=== PATIENT | male | born 1990 | race African-American/Black ===

== ENCOUNTER 2017-12-07 11:48 | Emergency (ER) | payer MEDICARE, SELFPAY ==
[2017-12-07 11:49] VITALS: BP 139/79; PULSE 55; RESP 16; TEMP 37.1; O2SAT 99; BMI 28.1
--- NOTE | 2017-12-07 12:25 | VDLE_ITS ---
Reason For Study: LEG PAIN Procedure LEFT Exam performed portable in ED. GSV is normal. A preliminary report was called and/or faxed CFV is compressible, spontaneous, phasic, to Dr. Howard. competent, and demonstrates normal augmentation. FV is compressible, spontaneous, phasic, competent and demonstrates normal augmentation. POP V is compressible, spontaneous, phasic, competent and demonstrates normal augmentation. T/P Trunk is compressible. PTV is compressible. LT PerV is compressible. Interpretation Summary Deep veins of the left lower extremity are patent and compressible segmentally. There is no evidence of left lower extremity deep vein thrombosis. Valvular competence appears intact within the proximal deep venous system on the left . The left greater saphenous vein appears patent and compressible segmentally. Ordering Physician: Oma Howard Referring Physician: Niko Buckner Performed By: Moon Madrigal RVT
--- NOTE | 2017-12-07 12:25 | RAD_ITS ---
STUDY: X-RAY - LEFT KNEE REASON FOR EXAM: Male, 27 years old. Left knee pain. History of torn cartilage TECHNIQUE: 4 view(s) of the knee. COMPARISON: None. FINDINGS: Normal visualized distal femur. Normal visualized proximal tibia and fibula. Normal proximal tibiofibular articulation. Normal medial femorotibial compartment. Normal lateral femorotibial compartment. Normal patellofemoral articulation. The soft tissue structures are unremarkable. RAD/Knee 4 or More Views IMPRESSION: Normal x-ray examination of the knee. Electronically Signed: Rickey Stevenson MD at 13:14 EST Tel [phone], Service support ,
--- NOTE | 2017-12-07 12:29 | ED.DCSUM_ITS ---
- ER Visit Summary Date of Service: 12/07/17 Chief Complaint: Left knee pain History of Present Illness: The patient is a 27 M presenting with left knee pain for months, worsening ?2 days. Patient states he has a history of torn cartilage in his left knee. He has seen Dr. Gonzalez in the past. He states he has been in physical therapy in the past which has not helped. He has taken Tylenol, ibuprofen at home. He states he has not seen Dr. Gonzalez in over a year. He denies any new injury. Denies fever chills or other complaints. Physical Examination: Vitals are stable. Patient is afebrile. Alert no acute distress. HEENT exam is unremarkable. Lungs are clear and equal bilaterally. Heart is regular rate and rhythm. Extremities left knee: mild posterior tenderness. Active full range of motion. No swelling or effusion. No warmth or erythema. Normal distal pulse. Skin is warm and dry. No focal neurologic deficit. Remainder of exam is unremarkable. Emergency Department Course and Treatment: Ultrasound of the left lower extremity shows no evidence of DVT. Left knee x-ray shows no acute process. He was given Toradol IM. Advised to ice and elevate. Advised to follow-up with Dr. Gonzalez as needed. Advised return ED if worsening complaints. Disposition: Discharge home Impression: Chronic left knee pain This note was generated with [employer] dictation software. It may contain incorrect words, spelling, and punctuation that were not noted in review of the chart prior to signing ED Disposition - Plan for ED Patient: Chief Complaint: Lower Extremity Injury Referrals: Niko Buckner MD [Primary Care Provider] -
--- NOTE | 2017-12-07 13:32 | ED.DEP ---
ED Disposition - Plan for ED Patient: Chief Complaint: Lower Extremity Injury Instructions: ED Sprain Knee Referrals: Niko Buckner MD [Primary Care Provider] - Renny Gonzalez DO [STAFF PHYSICIAN] -
[2017-12-07] MEDS: Ketorolac 60 MG/2 ML Vial IM (13:41)
[2017-12-07 13:42] VITALS: BP 142/100; PULSE 48; RESP 16; O2SAT 100
== END 2017-12-07 14:08 | disposition home or self-care (01) ==
PROVIDERS: Emergency Provider Emergency Medicine; Family Provider Family Medicine; PCP Family Medicine
DX: M25.562 Pain in left knee (principal); G89.29 Other chronic pain; F90.9 Attention-deficit hyperactivity disorder, unspecified type; Z72.0 Tobacco use
CPT/HCPCS: 73564; 93971; 96372; 99282

== ENCOUNTER 2018-01-12 21:18 | Emergency (ER) | payer MEDICARE, SELFPAY ==
[2018-01-12 21:18] VITALS: BP 160/80; PULSE 73; RESP 16; TEMP 36.8; O2SAT 98; BMI 25.0
--- NOTE | 2018-01-12 21:33 | ED.VISSUMM ---
- ER Visit Summary Date of Service: 01/12/18 Chief Complaint: Knee pain History of Present Illness: The patient is a 27 M who states that he was walking down the street. He states all of a sudden his left knee gave out. He reports that his left knee was stuck in a bent position. He states he did nothing other than wait for it to loosen up and he was able to straighten it out. He has a history of knee issues and is currently in physical therapy. He has seen Dr. Gonzalez from orthopedics. He is unsure of his next appointment. Physical Examination: Afebrile vital signs are stable Gen: Well-nourished well-developed Head: Normocephalic atraumatic Eyes: Perrl EOMI ENT: TMs clear no rhinorrhea moist mucous membranes Neck: Supple no lymphadenopathy no JVD nontender CVS: Regular rate rhythm no murmurs normal S1-S2 Respiratory: No distress clear to auscultation bilaterally chest nontender Abdomen: Soft nontender nondistended normal bowel sounds no masses Back: Nontender Extremity: She reports diffuse tenderness to palpation along the patella. However he is able to palpate it without the same pain as when I palpated. He is able to have full range of motion flexion extending without difficulty. Ligaments are stable. Skin: Normal color no rash Neuro: alert orientated ?3 CN II-XII intact Psych: Normal affect normal mood Test Results: Not indicated Emergency Department Course and Treatment: Patient will be discharged home. We will Colton wrap the knee. He is to follow-up as scheduled. Impression:. Left knee pain This note was generated with [employer] dictation software. It may contain incorrect words, spelling, and punctuation that were not noted in review of the chart prior to signing ED Disposition - Plan for ED Patient: Disposition: Home or Assisted Living Chief Complaint: Lower Extremity Injury Instructions: ED Knee Pain UKO, ED Dislocation Patella Referrals: Renny Gonzalez DO [STAFF PHYSICIAN] - Keep Destiny appointment
[2018-01-12] MEDS: Ibuprofen 400 MG Tablet 800 MG PO (21:45)
== END 2018-01-12 21:47 | disposition home or self-care (01) ==
LOC: ED 21:41
PROVIDERS: Emergency Provider Emergency Medicine; Family Provider Family Medicine; PCP Family Medicine
DX: M25.562 Pain in left knee (principal); F98.8 Other specified behavioral and emotional disorders with onset usually occurring in childhood and adolescence
CPT/HCPCS: 99283

== ENCOUNTER 2018-01-26 09:07 | Emergency (ER) | payer MEDICARE, SELFPAY ==
[2018-01-26 09:08] VITALS: BP 153/94; PULSE 66; RESP 16; TEMP 36.2; O2SAT 98; BMI 25.0
--- NOTE | 2018-01-26 09:18 | ED.VISSUMM ---
- ER Visit Summary Date of Service: 01/26/18 Chief Complaint: Severe sore throat History of Present Illness: The patient is a 27 M who presents with sore throat, nasal congestion, nonproductive cough. He states swallowing liquids or solids causes increased pain. He reports difficulty swallowing pills. He also complains of fatigue. He denies any ocular, auditory or visual symptoms. He denies any neck pain or stiffness. His cough is nonproductive. He is a smoker of 2 packs per day. He denies any GI symptoms. He denies rash. He denies contact with anyone that has been ill recently. Physical Examination: Vital signs are remarkable for blood pressure 153/94. Vital signs otherwise unremarkable. HEENT exam is remarkable for boggy nasal mucosa with drainage. TMs are normal. Posterior pharynx with mild erythema. Uvula is midline with no exudate noted. Trachea is midline with no stridor. There is no cervical lymphadenopathy. Insert cardiac pulmonary exam Test Results: Since patient Centor score is 0 no testing is indicated or required Emergency Department Course and Treatment: Patient was told he has a viral upper respiratory infection. He was told he may take either use Chloraseptic [place] or Cepastat lozenges for his throat discomfort. He was informed that he may be ill for another 7-10 days. Treatment Plan: Symptomatic arop-jsq-pywmscs treatment and patient's been informed that smoking is not good for him. Disposition: Discharged to home Impression: Acute viral upper respiratory infection This note was generated with [employer] dictation software. It may contain incorrect words, spelling, and punctuation that were not noted in review of the chart prior to signing ED Disposition - Plan for ED Patient: Disposition: Home or Assisted Living Chief Complaint: Sore Throat Instructions: ED URI Viral Referrals: Niko Buckner MD [Primary Care Provider] - 10-14 Days if not better
--- NOTE | 2018-01-26 09:23 | ED.DCSUM_ITS ---
- ER Visit Summary Date of Service: 01/26/18 Chief Complaint: Severe sore throat History of Present Illness: The patient is a 27 M who presents with sore throat , nasal congestion, nonproductive cough. He states swallowing liquids or solids causes increased pain. He reports difficulty swallowing pills. He also complains of fatigue. He denies any ocular, auditory or visual symptoms. He denies any neck pain or stiffness. His cough is nonproductive. He is a smoker of 2 packs per day. He denies any GI symptoms. He denies rash. He denies contact with anyone that has been ill recently. Physical Examination: Vital signs are remarkable for blood pressure 153/94. Vital signs otherwise unremarkable. HEENT exam is remarkable for boggy nasal mucosa with drainage. TMs are normal. Posterior pharynx with mild erythema. Uvula is midline with no exudate noted. Trachea is midline with no stridor. There is no cervical lymphadenopathy. Insert cardiac pulmonary exam Test Results: Since patient Centor score is 0 no testing is indicated or required Emergency Department Course and Treatment: Patient was told he has a viral upper respiratory infection. He was told he may take either use Chloraseptic [place] or Cepastat lozenges for his throat discomfort. He was informed that he may be ill for another 7-10 days. Treatment Plan: Symptomatic ecak-kwq-irlzqkb treatment and patient's been informed that smoking is not good for him. Disposition: Discharged to home Impression: Acute viral upper respiratory infection This note was generated with [employer] dictation software. It may contain incorrect words, spelling, and punctuation that were not noted in review of the chart prior to signing ED Disposition - Plan for ED Patient: Disposition: Home or Assisted Living Chief Complaint: Sore Throat Instructions: ED URI Viral Referrals: Niko Buckner MD [Primary Care Provider] - 10-14 Days if not better
== END 2018-01-26 09:30 | disposition home or self-care (01) ==
PROVIDERS: Emergency Provider Emergency Medicine; Family Provider Family Medicine; PCP Family Medicine
DX: J06.9 Acute upper respiratory infection, unspecified (principal)
CPT/HCPCS: 99282

== ENCOUNTER 2018-03-22 19:37 | Emergency (ER) | payer MEDICARE, SELFPAY ==
--- NOTE | 2018-03-22 18:55 | RAD_ITS ---
STUDY: X-RAY - LEFT KNEE REASON FOR EXAM: Male, 28 years old. Pain TECHNIQUE: 4 view(s) of the knee. COMPARISON: None. FINDINGS: Normal visualized distal femur. Normal visualized proximal tibia and fibula. Normal proximal tibiofibular articulation. Normal medial femorotibial compartment. Normal lateral femorotibial compartment. Normal patellofemoral articulation. The soft tissue structures are unremarkable. RAD/Knee 4 or More Views IMPRESSION: Normal x-ray examination of the knee. Electronically Signed: Niko Grady MD at 16:07 EDT , Service support ,
--- NOTE | 2018-03-22 19:37 | DT_ITS ---
This patient was seen during an EMR downtime March 22, 2018 - March 29, 2018. This patient may have a combination of paper and electronic documentation or all paper documentation. All documentation is viewable within the e-chart portion of [facility] for each patient visit.
== END 2018-03-22 22:00 | disposition home or self-care (01) ==
LOC: ED 03-24 15:11
PROVIDERS: Emergency Provider Emergency Medicine; Family Provider Family Medicine; PCP Family Medicine
DX: M25.562 Pain in left knee (principal); G89.29 Other chronic pain; F17.210 Nicotine dependence, cigarettes, uncomplicated
CPT/HCPCS: 73564; 99284

== ENCOUNTER 2018-05-05 09:36 | Emergency (ER) | payer MEDICARE, SELFPAY ==
[2018-05-05 09:37] VITALS: BP 131/77; PULSE 102; RESP 15; TEMP 35.7; O2SAT 98; BMI 25.5
--- NOTE | 2018-05-05 10:02 | ED.VISSUMM ---
- ER Visit Summary Date of Service: 05/05/18 Chief Complaint: Sore throat History of Present Illness: The patient is a 28 M who states that he woke up on Thursday (2 days ago) with a sore throat. He notes chills and generalized body aches. He states that he is hard for him to swallow. He states that he is on Medrol for knee pain is currently taking anti-inflammatory he does not know the name of. Physical Examination: Afebrile vital signs are stable noted heart rate 102 in triage he is 91 on my examination Gen: Well-nourished well-developed Head: Normocephalic atraumatic Eyes: Perrl EOMI ENT: TMs clear no rhinorrhea moist mucous membranes there is bilateral tonsillar exudate and swelling. Neck: Supple patient has anterior posterior lymphadenopathy no JVD nontender CVS: Regular rate rhythm no murmurs normal S1-S2 Respiratory: No distress clear to auscultation bilaterally chest nontender Abdomen: Soft nontender nondistended normal bowel sounds no masses Back: Nontender Extremity: Nontender no edema Skin: Normal color no rash Neuro: alert orientated ?3 CN II-XII intact normal strength sensation reflexes gait cerebellar Psych: Normal affect normal mood Test Results: Rapid strep/culture was obtained. Rapid was negative. WBC is 17.2 with monocytes of 7.9. Monospot negative. Emergency Department Course and Treatment: Elevated white count is most likely due to the steroid and the infection. I believe this is most likely bacterial and will place him on Augmentin. Will await culture. He could also still be mono given that the test was obtained within the first 3 days of the illness. Patient will return if worsening or concerns or follow-up with his doctor. Impression: 1. Pharyngitis This note was generated with [employer] dictation software. It may contain incorrect words, spelling, and punctuation that were not noted in review of the chart prior to signing ED Disposition - Plan for ED Patient: Disposition: Home or Assisted Living Chief Complaint: Sore Throat Instructions: ED Strep Pharyngitis Poss Prescriptions: Oxycodone [Oxyir] 5 mg PO Q6H PRN PRN 3 Days #10 tab PRN Reason: Pain Amox/Clavulanate Tablet [Augmentin Tablet] 875 mg PO Q12H #20 tab Referrals: Niko Buckner MD [Primary Care Provider] - 3-5 Days if not improving
[2018-05-05 11:23] LABS: Absolute Lymphocyte Count 2.27 X10^3/ul (0.83-4.51); Absolute Neutrophil Count 13.5 X10^3/uL (2.0-7.7); Basophil# 0.03 X10^3/uL; Basophil% 0.2 % (0-1); Eosinophil# 0.04 X10^3/uL; Eosinophils% 0.2 % (0-5); Hematocrit 39.5 % (40-54); Hemoglobin 13.9 g/dl (13.0-16.5); Lymphocyte # 2.27 X10^3/ul (4.0); Lymphocyte % 13.2 % (19-41); Mean Corp Hgb Conc 35.2 g/gl (32-36); Mean Corpuscular Volume 88.2 fL (80-94); Mean Platelet Vol. 10.4 fl (6.2-12.0); Monocyte# 1.37 X10^3/uL; Monocyte% 7.9 % (0-10); Neutrophil # 13.48 X10^3/uL (2.7-7.7); Neutrophil % 78.2 % (47-70); Platelet Count 192 K/mm3 (150-450); RBC Distribution Width CV 12.3 % (11.6-14.6); RBC Distribution Width SD 38.9 fl (35.1-43.9); Red Blood Count 4.48 M/mm3 (4.6-6.2); White Blood Count 17.2 K/mm3 (4.4-11.0)
[2018-05-05 11:31] LABS: POSITIVE COUNT NO; POSITIVE DIFFERENTIAL NO; POSITIVE MORPHOLOGY NO
[2018-05-05 11:48] LABS: Internal QC Validated? YES +Cl - CLEAR BKGD; Monotest Negative (Negative)
[2018-05-05] MEDS: oxyCODONE 5 MG Tablet PO (12:16)
== END 2018-05-05 12:25 | disposition home or self-care (01) ==
PROVIDERS: Emergency Provider Emergency Medicine; Family Provider Family Medicine; PCP Family Medicine
DX: J02.9 Acute pharyngitis, unspecified (principal); Z72.0 Tobacco use
CPT/HCPCS: 36415; 85025; 86308; 87880; 99282

== ENCOUNTER 2018-05-25 13:13 | Emergency (ER) | payer MEDICARE, SELFPAY ==
[2018-05-25 13:37] VITALS: BP 98/50; PULSE 61; RESP 16; TEMP 36.4; O2SAT 98; BMI 25.2
--- NOTE | 2018-05-25 15:11 | ED.DCSUM_ITS ---
- ER Visit Summary Date of Service: 05/25/18 Chief Complaint: Left knee pain History of Present Illness: The patient is a 28 M with chronic left knee pain. He states it is been locking up on him more than normal. He has seen orthopedics and physical therapy in the past, but states not for quite a while. He denies any new injury. Physical Examination: Vital signs unremarkable. Patient sitting in the rivera chair. He is in no acute distress. Lower external examination is significant for tenderness along the medial joint line of the left knee. There is no effusion. He has full range of motion without difficulty. Ligaments are tight on testing. He has strong distal pulses and normal sensation. Test Results: Left knee x-rays are obtained and unremarkable. Emergency Department Course and Treatment: Patient was given ibuprofen. On repeat evaluation he is sleeping. He easily awakens. Colton wrap will be applied to the knee and he will be referred to orthopedics for follow-up. Treatment Plan: [] Disposition: Discharge Impression: Left knee pain, concern for meniscus injury This note was generated with [employer] dictation software. It may contain incorrect words, spelling, and punctuation that were not noted in review of the chart prior to signing ED Disposition - Plan for ED Patient: Chief Complaint: Lower Extremity Injury Referrals: Niko Buckner MD [Primary Care Provider] -
[2018-05-25] MEDS: Ibuprofen 600 MG Tablet PO (15:37)
--- NOTE | 2018-05-25 15:45 | RAD_ITS ---
STUDY: X-RAY - LEFT KNEE REASON FOR EXAM: Left knee pain and locking. TECHNIQUE: 4 view(s) of the knee. COMPARISON: Radiographs 03/22/2018. FINDINGS: Normal visualized distal femur. Normal visualized proximal tibia and fibula. Normal proximal tibiofibular articulation. Normal medial femorotibial compartment. Normal lateral femorotibial compartment. Normal patellofemoral articulation. The soft tissue structures are unremarkable. RAD/Knee 4 or More Views IMPRESSION: Normal x-ray examination of the left knee. Electronically Signed: Randy Solorio MD at 16:29 EDT Tel , Service support ,
--- NOTE | 2018-05-25 16:52 | ED.DEP ---
ED Disposition - Plan for ED Patient: Disposition: Home or Assisted Living Chief Complaint: Lower Extremity Injury Instructions: ED Meniscal Injury Knee Poss Prescriptions: Ibuprofen 600 mg PO TID PRN PRN #30 tablet PRN Reason: Pain Referrals: Miriam Gama DO [STAFF PHYSICIAN] - Ottoniel Villar MD [STAFF PHYSICIAN] -
== END 2018-05-25 17:01 | disposition home or self-care (01) ==
PROVIDERS: Emergency Provider Emergency Medicine; Family Provider Family Medicine; PCP Family Medicine
DX: M25.562 Pain in left knee (principal); F90.9 Attention-deficit hyperactivity disorder, unspecified type; Z72.0 Tobacco use
CPT/HCPCS: 73564; 99284

== ENCOUNTER 2019-05-03 18:29 | Emergency (ER) | payer MEDICARE, SELFPAY ==
[2019-05-03 18:51] VITALS: BP 122/68; PULSE 65; RESP 14; TEMP 36.6; O2SAT 99; BMI 28.6
[2019-05-03 19:45] VITALS: RESP 14
--- NOTE | 2019-05-03 20:20 | RAD_ITS ---
STUDY: X-RAY - LEFT KNEE REASON FOR EXAM: Male, 29 years old. Left knee pain TECHNIQUE: 4 view(s) of the knee. COMPARISON: None. FINDINGS: Normal visualized distal femur. Normal visualized proximal tibia and fibula. Normal proximal tibiofibular articulation. Normal medial femorotibial compartment. Normal lateral femorotibial compartment. Normal patellofemoral articulation. The soft tissue structures are unremarkable. RAD/Knee 4 or More Views IMPRESSION: Normal x-ray examination of the knee. Electronically Signed: Edvin Byers DO at 21:10 EDT Tel , Service support ,
[2019-05-03] MEDS: Ibuprofen 600 MG Tablet PO (21:11)
[2019-05-03] MEDS: predniSONE 20 MG Tablet 40 MG PO (21:11)
--- NOTE | 2019-05-03 21:20 | ED.VIS.LOWEX ---
History of Present Illness Chief Complaint: Lower Extremity Injury Detail of Chief Complaint: Left knee pain Informant: Patient Occurred: Days, - - 2 days Mechanism/Context: - - No known injury Onset: Yesterday Timing: Continuous Quality of Pain: Aching, Throbbing Current Severity: Mild Maximum Severity: Moderate Associated Symptoms: Negative for: Parasthesia, Weakness Narrative: Patient reports history of chronic left knee pain. Patient had scope performed by Dr. Villar in November where he states a muscle was rubbing across a bone in his knee causing pain. This was fixed and patient had been doing quite well until yesterday. Patient complains of increased pain along the inferior aspect of the kneecap that started yesterday. It is worse with movement. He denies any known injury or change in activity. - Past Medical History (1) ADHD Status: Acute Past Medical History - Allergies and Home Meds Allergies/Adverse Reactions: Allergies naproxen Adverse Reaction (Mild, Verified 05/03/19 18:54) Other atomoxetine HCl [From Strattera] Adverse Reaction (Verified 05/03/19 18:54) Other MIGRIANES Primary Care Physician: Ottoniel Villar MD [STAFF PHYSICIAN] - 1-2 Weeks Prior records reviewed: Yes Past Medical History: - - Reviewed Surgical History: - - Left knee Smoking Status: Current every day smoker Review of Systems General: Denies: Chills, Fever Cardiovascular: Denies: Chest pain Respiratory: Denies: Dyspnea Gastrointestinal: Denies: Abdominal pain Musculoskeletal: Reports: Arthralgias Neurological: Denies: Weakness, Parasthesia, Numbness Physical Exam Vital Signs/Narrative: Vital Signs Temp Pulse Resp BP Pulse Ox 05/03/19 19:45 14 05/03/19 18:51 97.9 F 65 14 122/68 H 99 Inital Vital Signs reviewed: Yes - Extremity Exam Left Knee: - - Patient has reproducible focal pain along the infrapatellar tendon. No tenderness noted along the joint lines. He has full range of motion without difficulty. General: Well nourished, Well developed ENT: No Trauma Cardiovascular: Regular rate, Regular rhythm Respiratory: No distress, CTA bilaterally Abdomen: Soft, Nontender Neurological: Alert, Oriented x3, Normal Strength, Normal Sensation, - - Strong distal pulses Psychological: Normal affect Diagnostic/Tx/Re-eval Impressions Knee X-Ray 05/03/19 20:20 IMPRESSION: Normal x-ray examination of the knee. Electronically Signed: Edvin Byers DO at 21:10 EDT Tel , Service support , 05/03/19 20:20 Knee 4 or More Views [RAD] Stat - Medical Decision Making Patient has focal tenderness along the infrapatellar tendon. I believe he likely has tendinitis. He is treated with ibuprofen and prednisone. Colton wrap is applied to the knee. He will follow-up with Dr. Villar. ED Disposition - Plan for ED Patient: Disposition: Home or Assisted Living Diagnosis: Left knee sprain Instructions: Knee Sprain Prescriptions: Prednisone [Deltasone] 40 mg PO DAILY #10 tab Prescription Printed Ibuprofen 600 mg PO TID PRN PRN #14 tab PRN Reason: Pain Prescription Printed Referrals: Ottoniel Villar MD [STAFF PHYSICIAN] - 1-2 Weeks
== END 2019-05-03 21:33 | disposition home or self-care (01) ==
PROVIDERS: Emergency Provider Emergency Medicine; Family Provider Family Medicine; PCP Family Medicine
DX: S83.92XA Sprain of unspecified site of left knee, initial encounter (principal); X58.XXXA Exposure to other specified factors, initial encounter; Y93.9 Activity, unspecified; Y92.9 Unspecified place or not applicable; F90.9 Attention-deficit hyperactivity disorder, unspecified type; M25.562 Pain in left knee; G89.29 Other chronic pain; Z79.899 Other long term (current) drug therapy; F17.200 Nicotine dependence, unspecified, uncomplicated
CPT/HCPCS: 73564; 99285

== ENCOUNTER 2019-06-29 21:38 | Emergency (ER) | payer MEDICARE, SELFPAY ==
[2019-06-29 21:39] VITALS: BP 107/54; PULSE 63; RESP 18; TEMP 36.8; O2SAT 100; BMI 28.1
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
[2019-06-30 00:31] LABS: Bacteria 0 SEEN /hpf (None Seen)
[2019-06-30 00:32] LABS: Color, Urine Yellow (Yellow); Glucose, Dipstick Normal (Normal); Ketone-Dipstick 5 mg/dl (Negative); Leukocyte Esterase-Dipstick 500 /ul (Negative); Nitrite-Dipstick Negative (Negative); Occult Blood-Urine 10 /ul (Negative); Protein-Dipstick 30 mg/dl (Negative); Specific Gravity, Urine 1.025 (1.002-1.030); Urine Bilirubin Dipstick Negative (Negative); Urine Clarity Cloudy (Clear); Urine Urobilinogen 1 mg/dl (Normal)
[2019-06-30 00:41] LABS: Hyaline Cast 0-5 SEEN /lpf (0-5); Mucous, Urine 1+ /hpf (<or=2+); Red Blood Cells-Urine 0-5 SEEN /hpf (0-5); Squamous Epithelial Cells - UA 0-5 SEEN /hpf (0-5); White Blood Cells 50-100 SEEN /hpf (0-5)
[2019-06-30] MEDS: Ciprofloxacin 500 MG Tablet PO (00:58)
[2019-06-30 01:00] VITALS: RESP 16
[2019-06-30 03:19] LABS: Chlamydia Trachomatis by PCR Negative (Negative); Probe Check PASS
[2019-06-30 03:20] LABS: Neisserai gonorrhoeae by PCR Positive (Negative); Sample Adequacy Control PASS; Specimen Processing Control PASS
--- NOTE | 2019-06-30 11:01 | ED.RN ---
PT CALLED ABOUT TEST RESULTS. PT WANTED RX [facility]. SUPRAX 400MG PO X 1 AND AZITHROMYCIN 1000MG X [address] LITTLE
== END 2019-06-30 01:01 | disposition home or self-care (01) ==
PROVIDERS: Emergency Provider Emergency Medicine; Family Provider Family Medicine; PCP Family Medicine
DX: N30.90 Cystitis, unspecified without hematuria (principal); A54.9 Gonococcal infection, unspecified; F17.200 Nicotine dependence, unspecified, uncomplicated
CPT/HCPCS: 81001; 87086; 87491; 87591; 99284

== ENCOUNTER 2019-07-14 14:50 | Emergency (ER) | payer MEDICARE, SELFPAY ==
[2019-07-14 14:50] VITALS: BP 140/75; PULSE 63; RESP 16; TEMP 36.5; O2SAT 99
[2019-07-14 14:51] VITALS: BP 140/75; PULSE 63; RESP 16; TEMP 36.5; O2SAT 99; BMI 32.5
--- NOTE | 2019-07-14 15:14 | RAD_ITS ---
STUDY: X-RAY - LEFT KNEE REASON FOR EXAM: Male, 29 years old. Lateral knee pain following a fall TECHNIQUE: 4 view(s) of the knee. COMPARISON: None. FINDINGS: Normal visualized distal femur. Normal visualized proximal tibia and fibula. Normal proximal tibiofibular articulation. Normal medial femorotibial compartment. Normal lateral femorotibial compartment. Normal patellofemoral articulation. The soft tissue structures are unremarkable. RAD/Knee 4 or More Views IMPRESSION: Normal x-ray examination of the knee. Electronically Signed: Rickey Stevenson, at 15:40 EDT , Service support ,
--- NOTE | 2019-07-14 15:17 | ED.DCSUM_ITS ---
- ER Visit Summary Date of Service: 07/14/19 Chief Complaint: [Fall with injury to back and left knee] History of Present Illness: The patient is a 29 M [resents to the emergency department after sustaining fall while at the [employer]. 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 Patient was doing some dishes and cleaned a large pot that he went to set on the counter and slipped on the wet floor which caused him to fall and dropped the large pot onto his left knee. Patient has history of some chronic back pain issues. He denies any pain rating down his legs. He denies any weakness in extremities. Patient's main concern is his left knee. Patient states that he has had a left knee operated on in the past and had a arthroscopy of it. She otherwise has no medical history.] Physical Examination: HEENT-PERRLA, EOMI. Cranial nerves II through XII grossly intact. TMs clear. Mucous membranes moist. No adenopathy. Cardiovascular-regular rate and rhythm without murmur or ectopy Lungs-clear to auscultation, chest wall stable without crepitus or subcu emphysema Abdomen-normoactive bowel sounds, soft, nontender, no rebound or rigidity, no peritoneal signs. Back exam-patient has some mild to minimal discomfort over the lumbar spine and lumbar paraspinal musculature bilaterally. There is no ecchymosis or bruising. No bony step-offs noted. Patient has negative straight leg raises. Deep tendon reflexes are plus 2 out of 4 bilaterally at the patella and Achilles. Patient has normal 5 extension bilaterally. Extremities-intact ?4, normal range of motion, normal pulses. Left knee-patient has diffuse tenderness over the patella. There is no ecchymosis or bruising noted. There is no deformity. Patient has pain with flexion extension of the knee. He is neurovascular intact distally.] Test Results: [X-rays of the left knee obtained which were normal.] Emergency Department Course and Treatment: [Patient was given an Colton wrap. Patient was given a dose of ibuprofen.] Treatment Plan: [To follow-up with his primary care physician within next 5 to 7 days. Refused crutches.] Disposition: [Discharged home in stable condition] Impression: [Mechanical fall Back strain Contusion left knee] This note was generated with [employer] software. It may contain incorrect words, spelling, and punctuation that were not noted in review of the chart prior to signing ED Disposition - Plan for ED Patient: Referrals: Niko Buckner MD [Primary Care Provider] -
--- NOTE | 2019-07-14 15:52 | ED.DEP ---
ED Disposition - Plan for ED Patient: Instructions: Back Sprain/Strain, CONTUSION, Lower Extremity, FALL, Mechanical Prescriptions: Ibuprofen [Motrin] 600 mg PO Q6H PRN PRN #30 tab PRN Reason: Pain Score 4-10/10 Prescription Printed Referrals: Niko Buckner MD [Primary Care Provider] - 5-7 Days
[2019-07-14 16:01] VITALS: BP 131/52; PULSE 70; RESP 16; O2SAT 98
--- NOTE | 2019-07-14 16:04 | ED.RN ---
PT WAS GIVEN MOTRIN PRIOR TO COMING TO ER SO REFUSED
== END 2019-07-14 16:05 | disposition home or self-care (01) ==
LOC: ED 15:22
PROVIDERS: Emergency Provider Emergency Medicine; Family Provider Family Medicine; PCP Family Medicine
DX: S80.02XA Contusion of left knee, initial encounter (principal); S39.012A Strain of muscle, fascia and tendon of lower back, initial encounter; W01.0XXA Fall on same level from slipping, tripping and stumbling without subsequent striking against object, initial encounter; Y93.G1 Activity, food preparation and clean up; Y92.89 Other specified places as the place of occurrence of the external cause; Y99.2 Volunteer activity; F12.90 Cannabis use, unspecified, uncomplicated; Z72.0 Tobacco use
CPT/HCPCS: 73564; 99285

== ENCOUNTER 2019-08-22 14:42 | Emergency (ER) | payer MEDICARE, SELFPAY ==
[2019-08-22 14:43] VITALS: BP 134/69; PULSE 86; RESP 21; TEMP 37.1; O2SAT 98; BMI 30.2
--- NOTE | 2019-08-22 15:14 | ED.DCSUM_ITS ---
History of Present Illness Chief Complaint: Back Informant: Patient Onset: Today Current Severity: Moderate Maximum Severity: Moderate Narrative: Patient presents with right lower back pain. He states he woke with pain this morning. He denies any known injury or change in activity. He does have a problem with his back in the past but is never had surgery or injections. Pain does not radiate to his legs. He denies dysuria or hematuria. Patient points to the right mid lumbar paraspinals and describing his area of pain. He denies fever or chills. Has not otherwise been sick. He states he took 600 mill grams of ibuprofen approximately 3 hours ago. Past Medical History - Allergies and Home Meds Allergies/Adverse Reactions: Allergies latex Allergy (Verified 08/22/19 14:44) Hives naproxen Adverse Reaction (Mild, Verified 08/22/19 14:44) Other atomoxetine HCl [From Strattera] Adverse Reaction (Verified 08/22/19 14:44) Other MIGRIANES Primary Care Physician: Niko Buckner MD [Primary Care Provider] - Prior records reviewed: Yes Past Medical History: - - Reviewed Surgical History: - - Left knee Smoking Status: Current every day smoker Review of Systems General: Denies: Chills, Fever Eyes: Denies: Visual changes - bilaterally ENT: Denies: Bilateral ear pain Cardiovascular: Denies: Chest pain, Palpitations Respiratory: Denies: Dyspnea, Cough Gastrointestinal: Denies: Abdominal pain, Nausea, Vomiting, Diarrhea Genitourinary: Denies: Dysuria, Hematuria Musculoskeletal: Reports: Back pain. Denies: Extremity Pain Skin: Denies: Rash Neurological: Denies: Headache, Parasthesia, Numbness Hematologic: Denies: Easy bruising Allergy: Denies: Uticaria Physical Exam Vital Signs/Narrative: Vital Signs Temp Pulse Resp BP Pulse Ox 08/22/19 14:43 98.8 F 86 21 H 134/69 H 98 Inital Vital Signs reviewed: Yes General: Well nourished, Well developed Head: Normocephalic ENT: Moist mucous membranes Neck: Supple Cardiovascular: Regular rate, Regular rhythm Respiratory: No distress, CTA bilaterally Abdomen: Soft, Nontender, Normal bowel sounds, No masses Back: - - Reproducible tenderness in the right mid lumbar paraspinal muscles. No erythema or rash. Mild midline tenderness. No tenderness in the left paraspinals. Extremities: Nontender, No edema Skin: Normal color, No rash Neurological: Alert, Oriented x3, - - No neuro deficits noted. Strong distal pulses. Psychological: Normal affect Diagnostic/Tx/Re-eval Laboratory Results 08/22/19 15:24 Urine Color Yellow Urine Clarity Clear Urine pH 7.0 Ur Specific [place] 1.010 Urine Protein 15 H Urine Glucose (UA) Normal Urine Ketones Negative Urine Occult Blood Negative Urine Nitrite Negative Urine Bilirubin Negative Urine Urobilinogen 1 H Ur Leukocyte Esterase Negative Urine RBC 0 SEEN Urine WBC 0-5 SEEN Ur Squamous Epith Cells 0 SEEN Urine Bacteria 0 SEEN Urine Mucus 0 SEEN - Medical Decision Making Patient had taken ibuprofen prior to arrival. He was given p.o. Valium here for muscle spasm. On repeat evaluation is resting comfortably and reports improvement in his pain. He will be discharged with Valium for muscle spasm. He will continue ibuprofen at home. ED Disposition - Plan for ED Patient: Disposition: Home or Assisted Living Diagnosis: Lumbar strain Instructions: BACK SPASM, No Trauma, Back Sprain/Strain Prescriptions: Diazepam [Valium] 5 mg PO Q12H PRN PRN #10 tablet PRN Reason: Muscle Spasm Referrals: Niko Buckner MD [Primary Care Provider] - 1 Week if not improving
[2019-08-22 15:30] LABS: Bacteria 0 SEEN /hpf (None Seen); Mucous, Urine 0 SEEN /hpf (<or=2+); Red Blood Cells-Urine 0 SEEN /hpf (0-5); Squamous Epithelial Cells - UA 0 SEEN /hpf (0-5)
[2019-08-22 15:39] LABS: Color, Urine Yellow (Yellow); Glucose, Dipstick Normal (Normal); Ketone-Dipstick Negative (Negative); Leukocyte Esterase-Dipstick Negative /ul (Negative); Nitrite-Dipstick Negative (Negative); Occult Blood-Urine Negative /ul (Negative); Protein-Dipstick 15 mg/dl (Negative); Urine Bilirubin Dipstick Negative (Negative); Urine Clarity Clear (Clear); Urine Urobilinogen 1 mg/dl (Normal)
[2019-08-22] MEDS: diazePAM 5 MG Tablet PO (15:39)
[2019-08-22 16:21] LABS: White Blood Cells 0-5 SEEN /hpf (0-5)
[2019-08-22 16:32] VITALS: PULSE 79; RESP 17; O2SAT 97
== END 2019-08-22 16:37 | disposition home or self-care (01) ==
PROVIDERS: Emergency Provider Emergency Medicine; Family Provider Family Medicine; PCP Family Medicine
DX: S39.012A Strain of muscle, fascia and tendon of lower back, initial encounter (principal); X58.XXXA Exposure to other specified factors, initial encounter; Y93.9 Activity, unspecified; Y92.9 Unspecified place or not applicable
CPT/HCPCS: 81001; 99283

== ENCOUNTER 2019-08-30 18:09 | Emergency (ER) | payer MEDICARE, SELFPAY ==
[2019-08-30 18:10] VITALS: BP 135/85; PULSE 99; RESP 17; TEMP 37.1; O2SAT 99; BMI 34.5
--- NOTE | 2019-08-30 18:17 | ED.VIS.GEN ---
History of Present Illness Chief Complaint: Other, Pain/Inj Informant: Patient Onset: Days Context: Sudden Onset Timing: Continuous Quality: Infection right ring and little finger Location: Infected blister ulnar side distal right ring finger and paronychia ring Current Severity: Mild Maximum Severity: Moderate Worsened by: Pressure Relieved by: Nothing Associated Symptoms: No associated symptoms Narrative: Patient is a 29-year-old [id number] male who is on disability secondary to ADHD and unable to read. He attempted to squeeze fluid out of the blister right ring finger and the paronychia. Paronychia is located in the ring finger. He denies history of diabetes. He denies fever, chills night sweats. He denies paresthesia, anesthesia or motor weakness. Prior similar symptoms: No Recent Illness/Hospitalization: No - Past Medical History (1) Unable to read or write Status: Acute (2) ADHD Status: Acute Past Medical History - Allergies and Home Meds Allergies/Adverse Reactions: Allergies latex Allergy (Verified 08/30/19 18:10) Hives naproxen Adverse Reaction (Mild, Verified 08/30/19 18:10) Other atomoxetine HCl [From Strattera] Adverse Reaction (Verified 08/30/19 18:10) Other MIGRIANES Primary Care Physician: Niko Buckner MD [Primary Care Provider] - Prior records reviewed: No Surgical History: - - Left knee Lives: Alone Smoking Status: Current every day smoker Drugs: None Review of Systems General: Denies: Chills, Fever, Malaise, Subjective, Sweats Skin: Reports: Abrasions, Wounds. Denies: Rash, Abscess Neurological: Denies: Weakness, Parasthesia, Numbness Hematologic: Denies: Easy bruising, Easy bleeding Physical Exam Vital Signs/Narrative: Vital Signs Temp Pulse Resp BP Pulse Ox 08/30/19 18:10 98.7 F 99 17 135/85 H 99 Inital Vital Signs reviewed: Yes General: Well nourished, Well developed, Obese, No Acute Distress Head: Normocephalic, Atraumatic Eyes: Perrl, EOMI. Negative for: Pale conjunctiva, Scleral icterus ENT: Moist mucous membranes, No rhinorrhea, TM's clear Neck: Supple, Nontender, No lymphadenopathy, No JVD Cardiovascular: Regular rate, Regular rhythm, No murmurs, Normal S1, Normal S2 Respiratory: No distress, CTA bilaterally, Chest nontender Extremities: No edema, Tenderness, - - Infected blister distal ulnar side of the right ring finger and a paronychia is radial side ring finger.. Negative for: Nontender Skin: Normal color, No Trauma, Rash. Negative for: Cyanosis, Diaphoresis, Jaundice Neurological: Alert, Oriented x3, Cranial nerves II-XII grossly intact, Normal Strength, Normal Sensation Psychological: Normal affect Diagnostic/Tx/Re-eval - Medical Decision Making Patient has an infected blister right ring finger which will require unroofing. There is no fluctuance with regards to the paronychia. Patient apparently opened the paronychia. Will instruct to soak in warm soapy water. Procedures Procedure(s): Has infected blister radial side right ring finger from the DIP joint to the tip. An 11 blade was used to make a small incision. There was free flow of purulent liquid. There is no evidence of cellulitis. There is no lymphangitis. There is no epitrochlear lymphadenopathy. Therefore will not treat with antibiotics. ED Disposition - Plan for ED Patient: Disposition: Home or Assisted Living Diagnosis: Paronychia of right ring finger, Blister of finger, infected Instructions: Paronychia, Blister Referrals: Niko Buckner MD [Primary Care Provider] - 3-5 Days if not improving Additional Instructions: Soak your are fingers in warm soapy water 6-8 times a day.
== END 2019-08-30 18:33 | disposition home or self-care (01) ==
LOC: ED 18:31
PROVIDERS: Emergency Provider Emergency Medicine; Family Provider Family Medicine; PCP Family Medicine
DX: S60.424A Blister (nonthermal) of right ring finger, initial encounter (principal); X58.XXXA Exposure to other specified factors, initial encounter; L03.011 Cellulitis of right finger; F90.9 Attention-deficit hyperactivity disorder, unspecified type; E66.9 Obesity, unspecified; F17.200 Nicotine dependence, unspecified, uncomplicated; Z68.34 Body mass index [BMI] 34.0-34.9, adult
CPT/HCPCS: 10060; 99282

== ENCOUNTER 2019-09-07 10:16 | Emergency (ER) | payer MEDICARE, SELFPAY ==
[2019-09-07 10:17] VITALS: BP 133/84; PULSE 108; RESP 17; TEMP 36.8; O2SAT 99; BMI 29.3
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
[2019-09-07] MEDS: Acetaminophen 500 MG Tablet 1000 MG PO (10:55)
[2019-09-07 12:16] VITALS: BP 129/99; PULSE 89; RESP 16; O2SAT 97
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
== END 2019-09-07 12:54 | disposition home or self-care (01) ==
PROVIDERS: Emergency Provider Emergency Medicine; Family Provider Family Medicine; PCP Family Medicine
DX: S00.83XA Contusion of other part of head, initial encounter (principal); S00.12XA Contusion of left eyelid and periocular area, initial encounter; S60.511A Abrasion of right hand, initial encounter; Y04.2XXA Assault by strike against or bumped into by another person, initial encounter; Y93.89 Activity, other specified; F90.9 Attention-deficit hyperactivity disorder, unspecified type; F17.200 Nicotine dependence, unspecified, uncomplicated
CPT/HCPCS: 70450; 70486; 99283

== ENCOUNTER 2019-12-13 14:09 | Emergency (ER) | payer MEDICARE, MEDICAID, SELFPAY ==
[2019-12-13 14:11] VITALS: BP 126/68; PULSE 71; RESP 16; TEMP 36.6; O2SAT 100; BMI 29.9
--- NOTE | 2019-12-13 15:08 | RAD_ITS ---
STUDY: X-RAY - RIGHT ANKLE REASON FOR EXAM: Male, 29 years old. right ankle pain TECHNIQUE: 3 view(s) of the ankle. COMPARISON: None. FINDINGS: Normal visualized distal tibia and fibula. Normal medial and lateral malleoli. Normal tibiotalar articulation and ankle mortise. Normal visualized talus and calcaneus. The visualized subtalar, talonavicular, calcaneocuboid and tarsal articulations are normal. The soft tissue structures are unremarkable. RAD/Ankle min 3 Views IMPRESSION: Normal x-ray examination of the ankle. Electronically Signed: Jignesh Jha MD at 15:48 EST Tel , Service support ,
[2019-12-13] MEDS: Ibuprofen 400 MG Tablet 800 MG PO (15:16)
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
== END 2019-12-13 15:43 | disposition home or self-care (01) ==
PROVIDERS: Emergency Provider Emergency Medicine; PCP Family Medicine
DX: M76.61 Achilles tendinitis, right leg (principal); F90.9 Attention-deficit hyperactivity disorder, unspecified type; Z72.0 Tobacco use
CPT/HCPCS: 73610; 99283

== ENCOUNTER 2020-01-24 14:09 | Emergency (ER) | payer MEDICARE, MEDICAID, SELFPAY ==
[2020-01-24 14:10] VITALS: BP 122/74; PULSE 61; PULSE 67; RESP 14; RESP 18; TEMP 36.2; O2SAT 97; BMI 30.2
--- NOTE | 2020-01-24 14:20 | ED.VIS.GEN ---
History of Present Illness Chief Complaint: Lower Extremity Injury Detail of Chief Complaint: Left knee pain Informant: Patient Onset: Today Current Severity: Mild Maximum Severity: Moderate Narrative: Patient presents secondary to increased left knee pain. He had surgery on his left knee in November 2018. He describes a muscle rubbing against his kneecap and causing a groove in the bone. This muscle was removed. Patient states since this time he has had increased left knee pain. Today he was walking and felt a pop in his left knee and now has increased pain. He describes some numbness and difficulty with ambulation. He has not taken anything for pain today. - Past Medical History (1) Anxiety and depression Status: Chronic (2) ADHD Status: Chronic Past Medical History - Allergies and Home Meds Allergies/Adverse Reactions: Allergies latex Allergy (Verified 01/24/20 14:09) Hives naproxen Adverse Reaction (Mild, Verified 01/24/20 14:09) Other atomoxetine HCl [From Strattera] Adverse Reaction (Verified 01/24/20 14:09) Other MIGRIANES Primary Care Physician: Niko Buckner MD [Primary Care Provider] - Doctors: Dr. Fisher Prior records reviewed: Yes Surgical History: - - Left knee Smoking Status: Current every day smoker Review of Systems General: Denies: Chills, Fever Eyes: Denies: Visual changes - bilaterally ENT: Denies: Bilateral ear pain Cardiovascular: Denies: Chest pain, Palpitations Respiratory: Denies: Dyspnea, Cough Gastrointestinal: Denies: Abdominal pain, Nausea, Vomiting, Diarrhea Genitourinary: Denies: Dysuria Musculoskeletal: Reports: Extremity Pain. Denies: Swelling Skin: Denies: Rash Neurological: Reports: Numbness Hematologic: Denies: Easy bruising Allergy: Denies: Uticaria Physical Exam Vital Signs/Narrative: Vital Signs Temp Pulse Resp BP Pulse Ox 01/24/20 14:10 97.1 F L 67 18 122/74 H 97 Inital Vital Signs reviewed: Yes General: Well nourished, Well developed Head: Normocephalic ENT: Moist mucous membranes Neck: Supple Cardiovascular: Regular rate, Regular rhythm Respiratory: No distress, CTA bilaterally Abdomen: Soft, Nontender Extremities: - - Mild tenderness over the joint line of the left knee, lateral greater than medial. No significant edema noted. Good range of motion. Ligaments are tight on testing. Strong distal pulses are noted. Skin: Normal color Neurological: Alert, Oriented x3, Normal Strength, Normal Sensation Psychological: Normal affect Diagnostic/Tx/Re-eval Impressions Knee X-Ray 01/24/20 14:30 IMPRESSION: Normal x-ray examination of the knee. Electronically Signed: Messi Cha MD at 16:04 EDT , Service support , 01/24/20 14:30 Knee 4 or More Views [RAD] Stat - Medical Decision Making Patient was given ibuprofen for pain. Test results are discussed with him. Colton wrap will be applied to the left knee and he will follow-up with Dr. Fisher. He will continue to use Tylenol or ibuprofen at home for pain. ED Disposition - Plan for ED Patient: Disposition: Home or Assisted Living Diagnosis: Left knee sprain Instructions: ED Sprain Knee Referrals: Niko Buckner MD [Primary Care Provider] - Randy Fisher DO [STAFF PHYSICIAN] - As soon as possible
--- NOTE | 2020-01-24 14:30 | RAD_ITS ---
STUDY: X-RAY - LEFT KNEE REASON FOR EXAM: Male, 29 years old. PATIENT FELL TODAY. PAIN LEFT KNEE LATERALLY. TECHNIQUE: 4 view(s) of the knee. COMPARISON: Left knee x-ray dated July 14, 2019 and May 25, 2018 FINDINGS: Normal visualized distal femur. Normal visualized proximal tibia and fibula. Normal proximal tibiofibular articulation. There is no demonstrated fracture. Normal medial femorotibial compartment. Normal lateral femorotibial compartment. Normal patellofemoral articulation. There is no demonstrated joint effusion. The soft tissue structures are unremarkable. RAD/Knee 4 or More Views IMPRESSION: Normal x-ray examination of the knee. Electronically Signed: Messi Cha MD at 16:04 EDT , Service support ,
[2020-01-24] MEDS: Ibuprofen 600 MG Tablet PO (14:44)
== END 2020-01-24 16:33 | disposition home or self-care (01) ==
PROVIDERS: Emergency Provider Emergency Medicine; PCP Family Medicine
DX: S83.92XA Sprain of unspecified site of left knee, initial encounter (principal); X58.XXXA Exposure to other specified factors, initial encounter; Y93.01 Activity, walking, marching and hiking; Y92.9 Unspecified place or not applicable; Y99.8 Other external cause status; F90.9 Attention-deficit hyperactivity disorder, unspecified type; F32.9 Major depressive disorder, single episode, unspecified; F41.9 Anxiety disorder, unspecified; F17.200 Nicotine dependence, unspecified, uncomplicated
CPT/HCPCS: 73564; 99283

== ENCOUNTER 2020-02-01 11:42 | Emergency (ER) | payer MEDICARE, MEDICAID, SELFPAY ==
[2020-02-01 11:43] VITALS: BP 113/68; PULSE 55; RESP 17; TEMP 36.7; O2SAT 99; BMI 30.4
--- NOTE | 2020-02-01 12:06 | ED.VIS.BACK ---
History of Present Illness Chief Complaint: Back Informant: Patient Onset: Today Timing: Continuous Quality: Sharp, Aching Location: Lumbar Current Severity: Severe Maximum Severity: Severe Worsened by: improves with: Movement, Ambulation, Bending, Lifting. worse with: Night time pain Relieved by: Remaining Still Narrative: Patient states that he woke today and had low back pain. Nonradiating with no neurologic deficits. He denies any IV drug use, fevers, rashes, abscesses. He states that he is homeless and sleeps on the concrete at [address] the [address]. He states that he does not recall sleeping any differently last night. He denies any trauma or any strenuous activity. Pain is worse with movement bending lifting. Feels better at rest. Past Medical History - Allergies and Home Meds Allergies/Adverse Reactions: Allergies latex Allergy (Verified 02/01/20 11:43) Hives naproxen Adverse Reaction (Mild, Verified 02/01/20 11:43) Other atomoxetine HCl [From Strattera] Adverse Reaction (Verified 02/01/20 11:43) Other MIGRIANES Primary Care Physician: Niko Buckner MD [Primary Care Provider] - Surgical History: - - Left knee Smoking Status: Heavy Smoker (>10/day) Review of Systems General: Denies: Chills, Fever, Sweats Eyes: Denies: Visual changes - bilaterally, Diplopia ENT: Denies: Rhinorrhea, Sore throat Cardiovascular: Denies: Chest pain, Palpitations Respiratory: Denies: Dyspnea, Cough, Dyspnea on exertion Gastrointestinal: Denies: Abdominal pain, Nausea, Vomiting, Diarrhea, Melena, Hematochezia Genitourinary: Denies: Dysuria, Hematuria, Frequency Musculoskeletal: Reports: Back pain. Denies: Myalgias, Arthralgias, Neck pain, Swelling, Extremity Pain Skin: Denies: Rash, Abscess, Wounds Neurological: Denies: Headache, Weakness, Numbness Physical Exam Vital Signs/Narrative: Vital Signs Temp Pulse Resp BP Pulse Ox 02/01/20 11:43 98.1 F 55 L 17 113/68 99 Inital Vital Signs reviewed: Yes General: Well nourished, Well developed Head: Normocephalic, Atraumatic Eyes: Perrl, EOMI ENT: Moist mucous membranes, No rhinorrhea Neck: Supple, Nontender Cardiovascular: Regular rate, Regular rhythm, No murmurs Respiratory: No distress, CTA bilaterally, Chest nontender Abdomen: Soft, Nontender, Nondistended, Normal bowel sounds Back: Paraspinal Tenderness - Patient is specifically tender to palpation in the lumbar paraspinal musculature. I do not see any tissue changes that would suggest an underlying abscess. Complains of pain with any type of movement. When I lay him back no matter which leg I raise above 20 degrees he complains of pain. Pain is out of proportion to examination. Negative for: Surgical Scar, Spinal tenderness Extremeties: Nontender, No edema Skin: Normal color, No rash Neuro: Alert, Oriented, Normal Strength, Normal Sensation, Normal DTR, Normal Gait Psychological: Normal affect Diagnostic/Tx/Re-eval - Medical Decision Making I do not see any red flags on his history or examination. I believe this to be a muscular spasm. Will treat with Motrin and Flexeril. Patient was advised this may take several weeks to fully resolve. ED Disposition - Plan for ED Patient: Disposition: Home or Assisted Living Diagnosis: Lumbar paraspinal muscle spasm Instructions: ED Spasm Back No Trauma Prescriptions: cycloBENZAPRine HCl [Flexeril] 10 mg PO TID PRN #15 tab PRN Reason: Muscle Spasm Prescription Printed Ibuprofen [Motrin] 800 mg PO TID PRN PRN #20 tab PRN Reason: Pain Or Fever Prescription Printed Referrals: Niko Buckner MD [Primary Care Provider] - 1 Week if not improving
[2020-02-01 12:42] VITALS: BP 131/62; PULSE 75; RESP 16; O2SAT 98
[2020-02-01] MEDS: Ibuprofen 400 MG Tablet 800 MG PO (12:45)
[2020-02-01] MEDS: cycloBENZAPRine HCl 10 MG Tablet PO (12:45)
== END 2020-02-01 12:46 | disposition home or self-care (01) ==
PROVIDERS: Emergency Provider Emergency Medicine; PCP Family Medicine
DX: M62.830 Muscle spasm of back (principal); F17.200 Nicotine dependence, unspecified, uncomplicated; Z59.0 Homelessness
CPT/HCPCS: 99283

== ENCOUNTER 2020-02-29 21:56 | Emergency (ER) | payer MEDICARE, MEDICAID, SELFPAY ==
[2020-02-29 21:58] VITALS: BP 152/102; PULSE 79; RESP 18; TEMP 37; O2SAT 100; BMI 29.0
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
[2020-02-29] MEDS: Acetaminophen 500 MG Tablet 1000 MG PO (22:16)
[2020-02-29] MEDS: Ibuprofen 600 MG Tablet PO (22:16)
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
[2020-02-29 23:05] VITALS: BP 144/96; PULSE 80; RESP 14; TEMP 37; O2SAT 99
== END 2020-02-29 23:14 | disposition home or self-care (01) ==
PROVIDERS: Emergency Provider Emergency Medicine; PCP Family Medicine
DX: S02.2XXA Fracture of nasal bones, initial encounter for closed fracture (principal); Y04.0XXA Assault by unarmed brawl or fight, initial encounter; Y93.89 Activity, other specified; Y92.9 Unspecified place or not applicable; F32.9 Major depressive disorder, single episode, unspecified; F41.9 Anxiety disorder, unspecified; F90.9 Attention-deficit hyperactivity disorder, unspecified type; F17.200 Nicotine dependence, unspecified, uncomplicated; Z59.0 Homelessness
CPT/HCPCS: 70450; 70486; 99285

== ENCOUNTER → 2020-05-28 16:47 | Outpatient (CLI) | payer MEDICARE, MEDICAID, SELFPAY ==
[2020-05-23 11:07] VITALS: BMI 29.0
--- NOTE | 2020-05-28 17:05 | MRI_ITS ---
STUDY: MRI LEFT KNEE REASON FOR EXAM: Left lateral and anterior knee pain, fall in January, arthroscopic surgery 2 years ago. TECHNIQUE: Standardized fat and water weighted pulse sequences were obtained in all 3 orthogonal planes. COMPARISON: Radiographs 05/25/2020. FINDINGS: Normal medial meniscus. Normal hyaline cartilage of the medial femorotibial compartment. Normal medial femoral condyle and tibial plateau. Normal medial collateral ligamentous complex (MCL). Normal distal semimembranosus, gracilis and semitendinosus tendons. Normal lateral meniscus. Normal hyaline cartilage of the lateral femorotibial compartment. Normal lateral femoral condyle and tibial plateau. Normal proximal tibiofibular articulation. Normal lateral collateral (fibular) ligament. Normal popliteus tendon. Normal biceps femoris tendon. Normal anterior cruciate ligament (ACL). Normal posterior cruciate ligament (PCL). Normal congruent patellofemoral articulation. Normal hyaline cartilage of the patellofemoral compartment. Normal medial and lateral patellar retinaculum. Normal quadriceps tendon. Normal patellar tendon. Normal Hoffa''s fat pad. There is a minimal volume of fluid in the knee joint. There is a very small popliteal cyst (T2 sagittal image 5). The otherwise visualized osseous structures are unremarkable. MRI/Lower Ext Joint Only (Routine) IMPRESSION: Very small popliteal cyst. Otherwise, unremarkable MRI of the left knee. Electronically Signed: Randy Solorio MD at 9:07 EDT Tel , Service support ,
== END ==
PROVIDERS: PCP Family Medicine; Referring Provider Orthopaedic Surgery; Visit Provider Orthopaedic Surgery
DX: M25.562 Pain in left knee (principal)
CPT/HCPCS: 73721

== ENCOUNTER 2020-07-06 17:24 | Emergency (ER) | payer MEDICAID, SELFPAY ==
[2020-05-30 08:15] VITALS: BMI 29.0
[2020-07-06 17:25] VITALS: BP 130/87; PULSE 60; RESP 18; TEMP 36.7; O2SAT 99; BMI 30.9
--- NOTE | 2020-07-06 18:30 | RAD_ITS ---
STUDY: X-RAY - LEFT KNEE REASON FOR EXAM: Male, 30 years old. Left knee pain TECHNIQUE: 4 view(s) of the knee. COMPARISON: 05/03/19 FINDINGS: There is no evidence of fracture or dislocation. There are no significant degenerative changes. There are no radiodense foreign bodies. RAD/Knee 4 or More Views IMPRESSION: No fracture or dislocation. Electronically Signed: Wili Yang, at 18:54 EDT Tel , Service support ,
[2020-07-06] MEDS: Ibuprofen 600 MG Tablet PO (19:15)
[2020-07-06] MEDS: Acetaminophen 500 MG Tablet 1000 MG PO (19:16)
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
== END 2020-07-06 19:59 | disposition home or self-care (01) ==
PROVIDERS: Emergency Provider Emergency Medicine; PCP Family Medicine
DX: M25.562 Pain in left knee (principal); F17.200 Nicotine dependence, unspecified, uncomplicated; Z59.0 Homelessness
CPT/HCPCS: 73564; 99284

== ENCOUNTER 2020-12-12 17:41 | Emergency (ER) | payer MEDICARE, MEDICAID, SELFPAY ==
[2020-12-12 17:42] VITALS: BP 142/92; PULSE 56; RESP 18; TEMP 35.9; O2SAT 100; BMI 28.1
--- NOTE | 2020-12-12 18:55 | RAD_ITS ---
STUDY: X-RAY CHEST REASON FOR EXAM: Male, 30 years old. Cough TECHNIQUE: Single AP portable view of the chest. COMPARISON: None. FINDINGS: The lungs are clear and expanded. There is no demonstrated pleural abnormality. Normal size heart. Normal mediastinum and jaimee. Normal visualized pulmonary arteries. Normal visualized aortic arch and descending thoracic aorta. Normal visualized thoracic spine. Normal visualized ribs, clavicles, and shoulders. There is no demonstrated abnormality of the visualized soft tissue structures of the upper abdomen. RAD/Chest 1 View (Portable) IMPRESSION: Normal x-ray examination of the chest. Electronically Signed: Rich Benson MD at 19:13 EST , Service support ,
--- NOTE | 2020-12-12 19:27 | ED.DCSUM_ITS ---
- ER Visit Summary Date of Service: 12/12/20 Chief Complaint: Cough History of Present Illness: The patient is a [address] Buckner. He reports he has a cough began yesterday. Is productive yellow sputum without blood. He denies any fever or chills. He reports he has had mild shortness of breath. Denies any wheezing. Patient denies sick contacts. He does wear a mask. Physical Examination: Vitals: Stable. Afebrile. General: Well-nourished and well-developed. Head: Normocephalic atraumatic. Neck: Supple, no lymphadenopathy. No JVD. Nontender. Cardiovascular: Regular rate and rhythm. No murmurs. Respiratory: No respiratory distress. Clear to auscultation bilaterally. Abdominal: Soft, nontender, nondistended, normal bowel sounds. No guarding, rebound, or peritoneal signs. Back: Nontender. Extremities: Nontender, no edema. Skin: Normal color, no rash. Neurologic: Alert and oriented ?3. Cranial nerves II through XII are intact. Normal strength and sensation. Psych: Normal affect. Test Results: COVID-19 is negative. Clinical Impression(s) from Imaging Studies Chest X-Ray 12/12/20 18:55 IMPRESSION: Normal x-ray examination of the chest. Electronically Signed: Rich Benson MD at 19:13 EST , Service support , Emergency Department Course and Treatment: Patient is resting comfortably and is reassured. Treatment Plan: Patient be discharged with symptomatic care. I did discuss some of the possibility of that the Covid test is a false negative and that he needs to quarantine while he has symptoms. Follow-up his primary care physician in 10 to 14 days if not improving. Return to the emergency department for any worsening symptoms. Disposition: To home in improved and stable condition. Impression: 1. URI. This note was generated with [employer] software. It may contain incorrect words, spelling, and punctuation that were not noted in review of the chart prior to signing ED Disposition - Plan for ED Patient: Instructions: ED URI, Viral, No Abx (Adult) Referrals: Dudley,Niko, MD [Primary Care Provider] - 10-14 Days if not better
[2020-12-12 19:43] VITALS: BP 145/96; PULSE 60; RESP 18; O2SAT 100
== END 2020-12-12 19:45 | disposition home or self-care (01) ==
LOC: ED 19:40
PROVIDERS: Emergency Provider Emergency Medicine; PCP Family Medicine
DX: J06.9 Acute upper respiratory infection, unspecified (principal); Z72.0 Tobacco use
CPT/HCPCS: 71045; 87426; 99282

== ENCOUNTER 2021-03-03 16:24 | Emergency (ER) | payer MEDICARE, MEDICAID, SELFPAY ==
[2021-03-03 16:26] VITALS: BP 119/83; PULSE 92; RESP 16; TEMP 36.6; O2SAT 100; BMI 26.9
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
[2021-03-03] MEDS: HYDROcodone Bitartrate/Apap 5/325 Tablet PO (16:55)
--- NOTE | 2021-03-03 17:00 | RAD_ITS ---
EXAM: XR PELVIS, 1 OR 2 VIEWS : 1990 CLINICAL INDICATION: injury TECHNIQUE: Frontal view of the pelvis. This report was created using [employer] report generation technology. COMPARISON: None. FINDINGS: BONES/JOINTS: Unremarkable. No displaced fracture. No destructive or sclerotic lesions. Note that overlapping bowel shadows may however obscure fine detail. Sacroiliac joints are unremarkable. No widening of the pubic symphisis. The articular structures are unremarkable. SOFT TISSUES: Unremarkable. No soft tissue swelling or gas. RAD/Pelvis 1 or 2 Views IMPRESSION: No evidence of displaced pelvic fracture. at 1720 Reported and signed by: Abram Simental MD Electronically Signed: Abram Simental MD at 17:19 EDT Tel , Service support ,
--- NOTE | 2021-03-03 17:00 | RAD_ITS ---
EXAM: XR LEFT FEMUR, 2 VIEWS : 1990 CLINICAL INDICATION: injury TECHNIQUE: Frontal and lateral views of the left femur. This report was created using [employer] report generation technology. COMPARISON: None. FINDINGS: BONES/JOINTS: Unremarkable. No acute fracture. No subluxation. Normal alignment. Preservation of the joint space. No sclerotic or destructive changes observed. SOFT TISSUES: Unremarkable. No soft tissue swelling or gas. No radiopaque foreign body. RAD/Femur Min 2 Views IMPRESSION: Negative left femur x-rays. at 1716 Reported and signed by: Abram Simental MD Electronically Signed: Abram Simental MD at 17:15 EDT Tel , Service support ,
--- NOTE | 2021-03-03 17:00 | RAD_ITS ---
EXAM: XR LUMBOSACRAL SPINE, 2 OR 3 VIEWS : 1990 CLINICAL INDICATION: injury TECHNIQUE: Frontal and lateral views of the lumbar spine and sacrum. This report was created using [employer] report AFFi[employer]iS technology. COMPARISON: None. FINDINGS: VERTEBRAE: Unremarkable. Preserved vertebral body height. No fracture. No spondylolisthesis. Preservation of the normal lumbar lordosis. No significant facet arthropathy. DISC SPACES: No acute findings. Disc spaces are maintained. GASTROINTESTINAL TRACT: Unremarkable as visualized. Included bowel gas pattern is non-obstructive. RAD/Lumbar Spine 2 or 3 Views IMPRESSION: No evidence of lumbar spinal fracture or spondylolisthesis. at 1716 Reported and signed by: Abram Simental MD Electronically Signed: Abram Simental MD at 17:15 EDT Tel , Service support ,
== END 2021-03-03 17:46 | disposition home or self-care (01) ==
PROVIDERS: Emergency Provider Emergency Medicine; PCP Family Medicine
DX: S39.012A Strain of muscle, fascia and tendon of lower back, initial encounter (principal); S80.12XA Contusion of left lower leg, initial encounter; V13.4XXA Pedal cycle driver injured in collision with car, pick-up truck or van in traffic accident, initial encounter; Y93.55 Activity, bike riding; Y92.410 Unspecified street and highway as the place of occurrence of the external cause; Y99.8 Other external cause status; F17.200 Nicotine dependence, unspecified, uncomplicated; F90.9 Attention-deficit hyperactivity disorder, unspecified type; F32.9 Major depressive disorder, single episode, unspecified; F41.9 Anxiety disorder, unspecified
CPT/HCPCS: 72100; 72170; 73552; 99284; A4216

== ENCOUNTER 2021-05-27 13:57 | Emergency (ER) | payer MEDICARE, SELFPAY ==
[2021-05-27 13:58] VITALS: BP 124/79; PULSE 90; RESP 18; TEMP 36.9; O2SAT 98; BMI 29.0
--- NOTE | 2021-05-27 16:16 | EX.ED.SAOD ---
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 He does not use any other substances including alcohol, and either smokes or snorts the methamphetamine he does not use any IV drugs. He is not suicidal. He uses it daily and his last use was yesterday. He denies any symptoms at this time. He states he is excepted to outpatient recovery house locally at [facility], after he goes through a 3-day inpatient detox program. [facility] Medical History ADHD Anxiety and depression No pertinent past medical history Allergy/AdvReac Type Severity Reaction Status Date / Time latex Allergy Hives Verified 05/27/21 14:00 naproxen AdvReac Mild Other Verified 05/27/21 14:00 atomoxetine HCl AdvReac Other Verified 05/27/21 14:00 [email or web address] Social History (Updated 05/27/21 @ 16:[address] Ottoniel Pittman MD) Smoking Status: Current every day smoker substance use type: methamphetamine ROS ROS ED Constitutional Constitutional ED: Denies chills or fever(s) Eyes Eyes: Denies change in vision or diplopia ENT ENT ED: Denies rhinorrhea or sore throat Cardiovascular Cardiovascular: Denies chest pain or palpitations Respiratory/Chest Respiratory/Chest: Denies cough or dyspnea Gastrointestinal Gastrointestinal: Denies abdominal pain, diarrhea, nausea or vomiting Genitourinary Genitourinary ED: Denies dysuria or hematuria Musculoskeletal Musculoskeletal: Denies back pain or neck pain Integumentary Denies abscess or rash Neurologic Neurologic: Denies headache(s), paresthesias or weakness Psychiatric Psychiatric: Denies anxiety or suicidal thoughts EXAM Physical Exam Const Vital Signs: 05/27/21 13:58 Temperature 98.5 F Temperature Source Temporal Pulse Rate 90 Respiratory Rate 18 Blood Pressure 124/79 H Blood Pressure Mean 94 Pulse Ox 98 Oxygen Delivery Method Room Air Positive well nourished and well developed General Appearance ED: well developed and NAD HEENT Reports moist mucous membranes normocephalic and atraumatic Eyes PERRL and EOMs intact bilaterally Neck full ROM and supple Resp normal respiratory effort and clear to auscultation bilaterally Cardio regular rate, regular rhythm and no murmurs GI non-tender and non-distended Auscultation: normoactive bowel sounds Palpation: soft Back/Spine no CVA tenderness General Back: other FROM Extremity normal to inspection General Extremety ED: Negative for edema, pulses abnormal or tenderness General Extremity: Negative for edema or pulses abnormal Neuro oriented x3, CN's II-XII intact bilaterally and no sensory deficits noted Sensorium / Orientation: awake and alert Motor Exam: strength 5/5 throughout Skin no rashes or lesions noted and no wounds MDM MDM MDM Narrative Medical decision making narrative: Patient is not having chest pain, hallucinations, nor seeming paranoid. His vital signs are normal and his physical exam is normal. He is not having any symptoms right now and his last use was over 24 hours ago. He is medically cleared and I am okay with him doing an outpatient treatment program. Our detox inpatient program does not take methamphetamine patients who are otherwise stable which this patient is. I also had our loan secretary discussed with intake at [facility] [place] and they do not think he needs to be admitted there either. Therefore discussed with the fraternity house cook at [facility] who is comfortable taking him and did an intake interview, and they are picking him up. Discharge Plan Triage Chief Complaint: Substance Abuse ED Provider: Ottoniel Pittman Dx/Rx/DC Orders Clinical Impression: Methamphetamine addiction Instructions: Addiction: Your Treatment Options, Understanding Methamphetamine ... Primary Care Provider: Niko Buckner Referrals: Niko Buckner MD [Primary Care Provider] - [facility] [STAFF PHYSICIAN] - As Needed Disposition Disposition: Home, Self Care
== END 2021-05-27 16:34 | disposition home or self-care (01) ==
PROVIDERS: Emergency Provider Emergency Medicine; PCP Family Medicine
DX: F15.20 Other stimulant dependence, uncomplicated (principal); F17.200 Nicotine dependence, unspecified, uncomplicated
CPT/HCPCS: 99282

== ENCOUNTER 2022-03-06 21:12 | Emergency (ER) | payer MEDICARE, MEDICAID, SELFPAY ==
[2022-03-06 21:13] VITALS: BP 169/98; PULSE 94; RESP 16; TEMP 37.3; O2SAT 100; BMI 28.1
--- NOTE | 2022-03-06 21:19 | RAD_ITS ---
STUDY: AP PORTABLE UPRIGHT CHEST X-RAY OF 2118 HOURS ON 03/06/2022 REASON FOR EXAM: 32-year-old male with a cough. TECHNIQUE: A single view AP portable upright chest x-ray was performed per protocol. COMPARISON: 12/12/2020.. FINDINGS: Normal osseous structures. Poor inspiratory effort. No cardiomegaly or heart failure. Mildly elevated right hemidiaphragm, normal variant. No pulmonary infiltrates, atelectasis, effusion, or pulmonary mass lesions. No significant interval change since the previous study of 12/12/2020. RAD/Chest 1 View IMPRESSION: 1. Poor inspiratory effort. 2. Otherwise, no active cardiopulmonary disease. 3. No interval change since that previous study of 12/12/2020. Electronically Signed: Umesh Haley MD at 21:45 EDT ,
--- NOTE | 2022-03-06 21:55 | EX.ED.DYSGE1 ---
HPI History of Present Illness Chief Complaint: Cough Informant: patient Onset/Context/Timing Onset: Yesterday Context: Gradual Onset Timing: Continuous Quality: Stabbing Location: Right chest Worsened by: Movement, deep breathing Relieved by: Nothing Narrative Narrative: Patient presents with cough and right-sided chest pain that began yesterday. Patient states the pain is constant and stabbing. Patient states it is over the right side of his chest. Patient states it is worse with movement. Patient states he feels like he cannot take a deep breath due to the pain. And sometimes he cannot catch his breath due to the pain. Patient denies any sputum production. Patient denies any fevers or chills. Patient states pain radiates into his back. Patient denies any fevers or chills. PFSH [facility] Medical History ADHD Anxiety and depression No pertinent past medical history Substance abuse Home Medications NK 03/06/22 [History Last Taken Unknown] Allergy/AdvReac Type Severity Reaction Status Date / Time latex Allergy Hives Verified 03/06/22 21:15 naproxen AdvReac Mild Other Verified 03/06/22 21:15 atomoxetine HCl AdvReac Other Verified 03/06/22 21:15 [From Strattera] Social History Smoking Status: Current every day smoker tobacco type: e-cigarettes substance use type: methamphetamine ROS ROS ED Constitutional Constitutional ED: Denies chills or fever(s) Eyes Eyes: Denies blurry vision or change in vision ENT ENT ED: Denies rhinorrhea or sore throat Cardiovascular Cardiovascular: Reports chest pain; Denies palpitations Respiratory/Chest Respiratory/Chest: Reports cough and dyspnea Gastrointestinal Gastrointestinal: Denies nausea or vomiting Genitourinary Genitourinary ED: Denies dysuria or hematuria Musculoskeletal Musculoskeletal: Reports back pain; Denies neck pain Integumentary Denies abscess or rash Neurologic Neurologic: Denies headache(s) or weakness Allergic/Immunologic Allergic/Immunologic ED: Denies mouth swelling or urticaria EXAM Physical Exam Const Vital Signs: 03/06/22 21:13 03/06/22 21:45 Temperature 99.1 F Temperature Source Temporal Pulse Rate 94 Respiratory Rate 16 Respiratory Effort Normal Non-Labored Respiratory Pattern Normal Blood Pressure 169/98 H Blood Pressure Mean 121 Pulse Ox 100 Oxygen Delivery Method Room Air Positive well nourished and well developed General Appearance ED: well developed and NAD HEENT Reports moist mucous membranes Neck supple and no JVD Chest Wall inspection of chest normal Chest Narrative: There is tenderness to palpation over the right anterior chest. There is no bony crepitance or step-off. There is no subcutaneous emphysema noted. Resp normal respiratory effort and clear to auscultation bilaterally GI non-tender Palpation: soft Neuro oriented x3, CN's II-XII intact bilaterally and no sensory deficits noted Sensorium / Orientation: alert Motor Exam: strength 5/5 throughout Psych mental status grossly normal MDM MDM MDM Narrative Medical decision making narrative: Portable 1 view chest x-ray was obtained. On my interpretation, lung peguero are clear. There is poor inspiratory effort noted. There is normal cardiac silhouette. Bony thorax is normal. There is no acute process noted. Radiologist also interpreted the x-ray and agrees. Patient was given a dose of [place] here. Patient was instructed to continue to take Tylenol at home as needed for pain. Patient was instructed to follow-up with his primary care physician in 5 to 7 days. Patient understood and was agreeable with the plan. All questions were answered. Radiography Diagnostic Testing: Clinical Impression(s) from Imaging Studies Chest X-Ray 03/06/22 21:19 IMPRESSION: 1. Poor inspiratory effort. 2. Otherwise, no active cardiopulmonary disease. 3. No interval change since that previous study of 12/12/2020. Electronically Signed: Umesh Haley MD at 21:45 EDT , Discharge Plan Triage Chief Complaint: Cough ED Provider: Blair Cortes Dx/Rx/DC Orders Clinical Impression: Right-sided chest wall pain Instructions: ED Chest Wall Pain, Costochondritis Prescriptions: No Action NK RF: 0 Primary Care Provider: Niko Buckner Referrals: Niko Buckner MD [Primary Care Provider] - 5-7 Days Disposition Disposition: Home, Self Care
[2022-03-06] MEDS: HYDROcodone Bitartrate/Apap 5/325 Tablet PO (22:09)
== END 2022-03-06 22:10 | disposition home or self-care (01) ==
PROVIDERS: Emergency Provider Emergency Medicine; PCP Family Medicine; Visit Provider Emergency Medicine
DX: R07.89 Other chest pain (principal); F17.290 Nicotine dependence, other tobacco product, uncomplicated
CPT/HCPCS: 71045; 99283

== ENCOUNTER → 2022-08-01 | Outpatient (CLI) | payer MEDICARE, MEDICAID, SELFPAY | END | disposition home or self-care (01) | PROVIDERS: PCP Family Medicine; Referring Provider Psychiatry & Neurology Sleep Medicine; Visit Provider Psychiatry & Neurology Sleep Medicine | DX: G47.33 Obstructive sleep apnea (adult) (pediatric) (principal) | CPT/HCPCS: 95811 ==

== ENCOUNTER 2022-10-20 23:48 | Emergency (ER) | payer MEDICARE, MEDICAID, SELFPAY ==
[2022-10-20 23:48] VITALS: BP 134/99; PULSE 87; RESP 16; TEMP 36.4; O2SAT 98; BMI 27.4
--- NOTE | 2022-10-21 00:04 | EX.ED.VIS.EY ---
HPI History of Present Illness Chief Complaint: Eye Problem Detail of Chief Complaint: Right thigh pain possible foreign body. Informant: patient Onset/Context/Timing Location: Right Eye Onset: Today Context: Gradual Onset Timing: Continuous Current Severity: Mild Maximum Severity: Mild Associated Symptoms Associated Symptoms - Eyes: Foreign body sensation and Pain; Negative for Burning, Crusting, Drainage, Eyelid swelling, Itching, Matting, Photophobia or Redness History of injury: No Visual correction: Glasses Narrative Narrative: [id number] male history of anxiety depression and substance abuse. Several hours he has had pain in his right eye and foreign body sensation with watering. Wears glasses no contacts. Denies any trauma. Said there was an eyelash near his eye a cat that removed and since that he has felt like he has had something in his eye. Does not think he scratched it. Denies any discharge. No visual changes. Prior similar symptoms: No Recent Illness/Hospitalization: No PFSH PFSH Medical History ADHD Anxiety and depression No pertinent past medical history Substance abuse Home Medications NK 03/06/22 [History Last Taken Unknown] Allergy/AdvReac Type Severity Reaction Status Date / Time latex Allergy Hives Verified 10/20/22 23:50 naproxen AdvReac Mild Other Verified 10/20/22 23:50 atomoxetine HCl AdvReac Other Verified 10/20/22 23:50 [From Strattera] Social History Smoking Status: Current every day smoker tobacco type: e-cigarettes substance use type: methamphetamine ROS ROS ED ROS Narrative Denies recent illness. Review of Systems ROS Unobtainable: Denies due to encephalopathy Constitutional Constitutional ED: Denies chills or fever(s) Eyes Eyes: Denies blurry vision ENT ENT ED: Denies ear pain Cardiovascular Cardiovascular: Denies chest pain Respiratory/Chest Respiratory/Chest: Denies cough or dyspnea Gastrointestinal Gastrointestinal: Denies abdominal pain Genitourinary Genitourinary ED: Denies dysuria or hematuria Musculoskeletal Musculoskeletal: Denies arthralgias Integumentary Denies abscess Neurologic Neurologic: Denies headache(s) Psychiatric Psychiatric: Denies anxiety Endocrine Endocrinology: Denies polydipsia Hematologic/Lymphatic Hematologic/Lymphatic: Denies easy bleeding or easy bruising Allergic/Immunologic Allergic/Immunologic ED: Denies mouth swelling or tongue swelling EXAM Physical Exam Narrative Exam Narrative: 32-year-old male no acute distress. Vital signs stable afebrile. H EENT exam pupils round reactive light extra ocular motions are intact. Both upper and lower lids bilaterally unremarkable. No swelling. No redness. No styes. No periorbital swelling or trauma. No obvious foreign body noted. No drainage. The right eye is watering more than the left. There is no hyphema. No preauricular lymphadenopathy. Lungs clear. Heart regular rhythm. Abdomen soft. Rest of exam unremarkable. Const Vital Signs: 10/20/22 23:48 Temperature 97.6 F L Temperature Source Temporal Pulse Rate 87 Respiratory Rate 16 Blood Pressure 134/99 H Blood Pressure Mean 110 Pulse Ox 98 Oxygen Delivery Method Room Air Positive well nourished and well developed; Negative for obese, cachectic, contractures or unkempt General Appearance ED: well developed and NAD; Negative for unkempt, cachectic or contractures Nutritional Appearance: Negative for cachectic or obese HEENT atraumatic; Negative for trauma or tenderness Nose: external nose normal and nares normal Neck no lymphadenopathy, supple and no JVD General: Negative for tenderness Resp normal respiratory effort, no retractions, no use of accessory muscles and clear to auscultation bilaterally Cardio regular rate, regular rhythm, S1 normal heart sound, S2 normal heart sound and no murmurs GI non-tender, non-distended and no masses Auscultation: normoactive bowel sounds Back/Spine no CVA tenderness Extremity normal to inspection General Extremety ED: Negative for edema General Extremity: Negative for edema Neuro oriented x3, CN's II-XII intact bilaterally and moves all extremities Sensorium / Orientation: alert, oriented to person, oriented to place and oriented to time; Negative for orientation impaired Motor Exam: strength 5/5 throughout Psych Appearance: Negative for unkempt Skin no wounds Lesions: no lesions Rashes: no rashes Trauma: Negative for abrasion or laceration MDM MDM MDM Narrative Medical decision making narrative: 32-year-old male with right eye discomfort and watering. Slit-lamp examination after instilling tetracaine and fluorescein drops will be obtained. Concern for either a foreign body or corneal abrasion. There is no signs of infection on exam. Slit lamp examination of the right shows a small corneal abrasion at approximately inferior to the pupil and between 4 and 7:00. No foreign body noted no signs of infection. No ulceration. Patient got relief with tetracaine. He will be given bacitracin ophthalmic ointment placed in his right eye twice a day for the next 3 to 5 days. Tetracaine eyedrops in the next 24 hours. Sunglasses to prevent glare. Motrin and Tylenol for pain. Ophthalmology follow-up if not improving. Discharge Plan Triage Chief Complaint: Eye Problem ED Provider: Richard Hastings Dx/Rx/DC Orders Clinical Impression: Corneal abrasion Instructions: ED Corneal Abrasion Prescriptions: No Action NK Primary Care Provider: Niko Buckner Referrals: Niko Buckner MD [Primary Care Provider] - Gretchen Michelle MD [Med Staff - Active Staff] - 3-5 Days if not improving Activity Restrictions/Additional Instructions: Sunglasses to prevent glare. Motrin and Tylenol for pain. You may use the eyedrops for the next 24 hours but after Thursday at midnight throw them away you cannot use them for more than 24 hours. You can use 2 drops every 2-4 hours. Eye ointment twice a day. Follow-up with the Dr. Michelle of ophthalmology if not improving. This should progressively he will improve over the next 2 to 5 days. Do not rub your eye. Disposition Disposition: Home, Self Care
[2022-10-21] MEDS: Fluorescein 1 MG STRIP 1 STRIP RIGHT EYE (00:18)
[2022-10-21] MEDS: Tetracaine 0.5% Ophthalmic Bottle 1 DRP RIGHT EYE (00:18)
[2022-10-21] MEDS: Neomycin/Bacitracin/Polymyxin Opth. Ointment 1 APPLIC RIGHT EYE (00:37)
== END 2022-10-21 00:38 | disposition home or self-care (01) ==
PROVIDERS: Emergency Provider Emergency Medicine; PCP Family Medicine; Visit Provider Emergency Medicine
DX: S05.01XA Injury of conjunctiva and corneal abrasion without foreign body, right eye, initial encounter (principal); F17.210 Nicotine dependence, cigarettes, uncomplicated; F17.290 Nicotine dependence, other tobacco product, uncomplicated; X58.XXXA Exposure to other specified factors, initial encounter
CPT/HCPCS: 99282

== ENCOUNTER 2022-11-08 21:38 | Emergency (ER) | payer MEDICARE, MEDICAID, SELFPAY ==
[2022-11-08 21:38] VITALS: BP 142/99; PULSE 99; RESP 16; TEMP 36.6; O2SAT 98; BMI 28.1
--- NOTE | 2022-11-08 22:11 | EX.ED.DYSGE1 ---
HPI History of Present Illness Chief Complaint: GI Bleed Informant: patient Narrative Narrative: Patient presents with complaint of constipation and rectal pain and bleeding. He states he has not moved his bowels much in the last week. But he still eating and drinking. He has no nausea vomiting abdominal pain fevers or chills. He has moved his bowels but smaller amounts. Today he was straining to move his bowels. When he did this he got pain in the rectum and he had red blood. He is not continuing to bleed. He has a burning itching feeling now but no pain. He is concerned he had a hemorrhoid. He has no history of Crohn's ulcerative colitis or chronic abdominal issues. Past medical history is ADHD Medications none but is supposed to be on Concerta. Allergies to nonsteroidals, Strattera and latex No abdominal surgeries PFSH [facility] Medical History ADHD Anxiety and depression No pertinent past medical history Substance abuse Home Medications NK 03/06/22 [History Last Taken Unknown] Allergy/AdvReac Type Severity Reaction Status Date / Time latex Allergy Hives Verified 11/08/22 21:40 naproxen AdvReac Mild Other Verified 11/08/22 21:40 atomoxetine HCl AdvReac Other Verified 11/08/22 21:40 [From Strattera] Social History Smoking Status: Current every day smoker tobacco type: e-cigarettes substance use type: methamphetamine ROS ROS ED Constitutional Constitutional ED: Denies chills or fever(s) ENT ENT ED: Denies sore throat Respiratory/Chest Respiratory/Chest: Denies cough or dyspnea Gastrointestinal Gastrointestinal: Reports constipation and other Details: See history of present illness ; Denies abdominal pain, diarrhea, melena, nausea or vomiting Genitourinary Genitourinary ED: Denies dysuria or hematuria Musculoskeletal Musculoskeletal: Denies back pain Integumentary Denies rash Neurologic Neurologic: Denies weakness Hematologic/Lymphatic Hematologic/Lymphatic: Denies easy bleeding or easy bruising Allergic/Immunologic Allergic/Immunologic ED: Denies urticaria EXAM Physical Exam Narrative Exam Narrative: Patient awake alert no acute distress. He is texting or typing on his phone very comfortable in the bed. HEENT: Mucous membranes are moist. No pallor of his conjunctiva. Eyes show no pallor Neck shows no JVD Chest is clear to auscultation bilaterally. Heart is regular without murmur gallop rub or tachycardia. Abdomen is soft nondistended normal bowel sounds and completely nontender Rectal exam does not show hemorrhoid. There is no bleeding. But he does have a fissure at the 6 o'clock position. It is tender at that area. I do not feel any mass or swelling. There is no sign of fistula or abscess. Extremities show no pallor. Skin no rashes or pallor. Const Vital Signs: 11/08/22 21:38 Temperature 97.8 F Temperature Source Temporal Pulse Rate 99 Respiratory Rate 16 Blood Pressure 142/99 H Blood Pressure Mean 113 Pulse Ox 98 Oxygen Delivery Method Room Air MDM MDM MDM Narrative Medical decision making narrative: Since the patient has no pallor or presyncope type symptoms, I do not think he needs blood count. He has single episode of bright red blood per rectum with straining that stopped. CBC I do not think would be effective. Exam does not show hernia but does show a fissure. I think we need to treat this by getting him to move his bowels regularly. We discussed [id number] meds such as Preparation H which can still calm down the inflammation and soreness at the rectum. I encouraged MiraLAX starting off twice a day and then once a day once his bowel movements are regular and soft. I will see if we still have some mag citrate that we can give him to stimulate initial bowel movement to help. We discussed reasons to return and needed follow-up. Discharge Plan Triage Chief Complaint: GI Bleed ED Provider: Tommy Millan Dx/Rx/DC Orders Clinical Impression: Rectal fissure, Bright red rectal bleeding Instructions: ED Understanding Anal Fissures Prescriptions: No Action NK Primary Care Provider: Niko Buckner Referrals: Niko Buckner MD [Primary Care Provider] - 3-5 Days Disposition Disposition: Home, Self Care
[2022-11-08] MEDS: Bisacodyl 5 MG Tablet 10 MG PO (22:42)
[2022-11-08 22:44] VITALS: PULSE 78; RESP 16; O2SAT 98
== END 2022-11-08 22:44 | disposition home or self-care (01) ==
LOC: ED 22:19
PROVIDERS: Emergency Provider Emergency Medicine; PCP Family Medicine; Visit Provider Emergency Medicine
DX: K62.5 Hemorrhage of anus and rectum (principal); F17.290 Nicotine dependence, other tobacco product, uncomplicated
CPT/HCPCS: 99283

== ENCOUNTER 2022-12-02 19:11 | Emergency (ER) | payer MEDICARE, MEDICAID, SELFPAY ==
[2022-12-02 19:12] VITALS: BP 135/95; PULSE 91; RESP 15; TEMP 36.1; O2SAT 100; BMI 27.6
--- NOTE | 2022-12-02 20:16 | EDS_ITS ---
HPI History of Present Illness Chief Complaint: Eye Problem Informant: patient Onset/Context/Timing Location: Right Eye Onset: Today Context: Sudden Onset Timing: Continuous Worsened by: Nothing Relieved by: Nothing Associated Symptoms Associated Symptoms - Eyes: Burning, Crusting, Drainage, Itching, Matting, Pain and Redness; Negative for Eyelid swelling, Foreign body sensation or Photophobia History of injury: No Narrative Narrative: Patient presents with right eye redness and drainage that began this morning when he woke up. Patient denies any specific trauma or injury. Patient denies any foreign body sensation. Patient states that he has had increasing drainage throughout the day from his right eye. Patient admits to some burning and itching. Patient admits to some matting and crusting. Patient denies any visual changes. Patient states that when the drainage gets worse he does get blurry vision with but it clears up after he wipes his eye. Patient wears glasses but does not wear contact lenses. [facility] Medical History ADHD Anxiety and depression No pertinent past medical history Substance abuse Home Medications NK 03/06/22 [History Last Taken Unknown] Allergy/AdvReac Type Severity Reaction Status Date / Time latex Allergy Hives Verified 12/02/22 19:15 naproxen AdvReac Mild Other Verified 12/02/22 19:15 atomoxetine HCl AdvReac Other Verified 12/02/22 19:15 [From Strattera] Surgical History no surgical history no surgical history Social History Smoking Status: Current every day smoker tobacco type: cigarettes and e- cigarettes substance use type: methamphetamine ROS ROS ED Constitutional Constitutional ED: Denies chills or fever(s) Eyes Eyes: Denies blurry vision or change in vision ENT ENT ED: Denies rhinorrhea or sore throat Cardiovascular Cardiovascular: Denies chest pain or palpitations Respiratory/Chest Respiratory/Chest: Denies cough or dyspnea Gastrointestinal Gastrointestinal: Denies nausea or vomiting Genitourinary Genitourinary ED: Denies dysuria or hematuria Musculoskeletal Musculoskeletal: Denies back pain or neck pain Integumentary Denies abscess or rash Neurologic Neurologic: Denies headache(s) or weakness Allergic/Immunologic Allergic/Immunologic ED: Denies mouth swelling or urticaria EXAM Physical Exam Const Vital Signs: 12/02/22 19:12 Temperature 97.0 F L Temperature Source Temporal Pulse Rate 91 Respiratory Rate 15 Blood Pressure 135/95 H Blood Pressure Mean 108 Pulse Ox 100 Oxygen Delivery Method Room Air Positive well nourished and well developed General Appearance ED: well developed and NAD HEENT atraumatic; Negative for tenderness Eyes Eyes Narrative: Pupils are equal, round, reactive to light bilaterally. Extraocular muscles are intact. Conjunctiva was injected on the right. There is some purulent drainage noted on the right. There are no corneal abrasions. There are no foreign bodies noted. Anterior chamber was clear. There is no hyphema noted. There is no hypopyon. Patient was unable to tolerate funduscopic examination. Neck supple and no JVD Neuro oriented x3, CN's II-XII intact bilaterally, moves all extremities and no sensory deficits noted Sensorium / Orientation: alert Motor Exam: strength 5/5 throughout MDM MDM MDM Narrative Medical decision making narrative: Differential diagnosis includes corneal abrasion, bacterial conjunctivitis, and viral conjunctivitis. I do not see a corneal abrasion on examination. This is more likely bacterial conjunctivitis. Patient was given a dose of erythromycin ophthalmic ointment here. Patient was instructed to apply this ointment every 4 hours while awake. Patient was instructed to follow-up with his primary care physician in 2 to 3 days for reevaluation. Smoking cessation was discussed. Patient understood and was agreeable with the plan. All questions were answer ed. Discharge Plan Triage Chief Complaint: Eye Problem ED Provider: Blair Cortes Dx/Rx/DC Orders Clinical Impression: Conjunctivitis, Tobacco use Instructions: ED Conjunctivitis, Bacterial Prescriptions: No Action NK Primary Care Provider: Niko Buckner Referrals: Niko Buckner MD [Primary Care Provider] - 2 Days Disposition Disposition: Home, Self Care
[2022-12-02] MEDS: Erythromycin Base 1 OPTH.TUBE 1 APPLIC RIGHT EYE (20:36)
== END 2022-12-02 20:42 | disposition home or self-care (01) ==
PROVIDERS: Emergency Provider Emergency Medicine; PCP Family Medicine; Visit Provider Emergency Medicine
DX: H10.9 Unspecified conjunctivitis (principal); F17.210 Nicotine dependence, cigarettes, uncomplicated
CPT/HCPCS: 99283

== ENCOUNTER 2023-03-28 17:41 | Emergency (ER) | payer MEDICARE, MEDICAID, SELFPAY ==
[2023-03-28 17:42] VITALS: BP 118/83; PULSE 80; RESP 16; TEMP 36.6; O2SAT 98; BMI 31.8
--- NOTE | 2023-03-28 18:12 | ED.VIS.BACK ---
HPI History of Present Illness Chief Complaint: Back Informant: patient Onset/Context/Timing Onset: Today Context: Sudden Onset Timing: Continuous Quality: - (Stabbing) Location: Lumbar Worsened by: improves with Ambulation Relieved by: Nothing Associated Symptoms Associated Symptoms: Negative for Numbness, Tingling, Radiation to Right Leg, Radiation to Left Leg, Fever, Abdominal Pain, Dysuria, Unable to Ambulate, Unable to Transfer, Urinary Retention, Urinary Incontinence, Constipation or Fecal Incontinence Narrative Narrative: Patient presents with back and neck pain that became worse today. Patient states he has had prior neck pain for the past week. Patient states that today he woke up and started having pain in his lower lumbar area. Patient states it is constant. Patient describes it as stabbing. Patient denies any trauma or injury. Patient states it is worse with ambulation. Patient denies any radiation of the pain. Patient denies any paresthesias or weakness. Patient denies any bowel or bladder changes. Patient denies any saddle anesthesia. [facility] Medical History (Updated 03/28/23 @ 18:[address] Blair Cortes DO) ADHD Anxiety and depression No pertinent past medical history Substance abuse Home Medications meloxicam 15 mg tablet 15 mg PO DAILY #10 tabs 03/28/23 [Rx Last Taken Unknown] Allergy/AdvReac Type Severity Reaction Status Date / Time latex Allergy Hives Verified 03/28/23 17:43 naproxen AdvReac Mild Other Verified 03/28/23 17:43 atomoxetine HCl AdvReac Other Verified 03/28/23 17:43 [From Strattera] Surgical History (Updated 03/28/23 @ 18:[address] Blair Cortes DO) Hx of knee surgery Social History Smoking Status: Current every day smoker tobacco type: cigarettes and e-cigarettes substance use type: methamphetamine ROS ROS ED Constitutional Constitutional ED: Denies chills or fever(s) Eyes Eyes: Denies blurry vision or change in vision ENT ENT ED: Denies rhinorrhea or sore throat Cardiovascular Cardiovascular: Denies chest pain or palpitations Respiratory/Chest Respiratory/Chest: Denies cough or dyspnea Gastrointestinal Gastrointestinal: Denies nausea or vomiting Genitourinary Genitourinary ED: Denies dysuria or hematuria Musculoskeletal Musculoskeletal: Reports back pain and neck pain Integumentary Denies abscess or rash Neurologic Neurologic: Denies headache(s) or weakness Allergic/Immunologic Allergic/Immunologic ED: Denies mouth swelling or urticaria EXAM Physical Exam Const Vital Signs: 03/28/23 17:42 Temperature 98 F Temperature Source Temporal Pulse Rate 80 Respiratory Rate 16 Blood Pressure 118/83 H Blood Pressure Mean 94 Pulse Ox 98 Oxygen Delivery Method Room Air Positive well nourished and well developed General Appearance ED: well developed and NAD Neck supple and no JVD Back/Spine Back/Spine Narrative: There is tenderness over the right lower lumbar paraspinal muscles. There is no midline tenderness. There is no bony crepitance or step-off. Range of motion was slightly limited in all motions of the lumbar spine secondary to pain. Strength is 5/5 bilaterally in the lower extremities. There are no sensory deficits noted. Deep tendon reflexes are 2/4 bilaterally in the lower extremities. Lumbar Spine / Lower Back: ROM limited Neuro oriented x3 and no sensory deficits noted Sensorium / Orientation: alert Motor Exam: strength 5/5 throughout Deep Tendon Reflexes: Rt Patellar (L4): 2+, Lt Patellar (L4): 2+, Rt Ankle (S1): 2+ and Lt Ankle (S1): 2+ Deep Tendon Reflexes Back: Rt Patellar (L4): 2+, Lt Patellar (L4): 2+, Rt Ankle (S1): 2+ and Lt Ankle (S1): 2+ Psych mental status grossly normal Skin no rashes or lesions noted MDM MDM MDM Narrative Medical decision making narrative: Patient was advised that this is most likely a muscular strain. Patient has an allergy to naproxen. However, this is not an anaphylactic reaction. Therefore, patient will be given a prescription for meloxicam to take as needed for pain. Patient was instructed to use ice to the area. Patient was instructed to follow-up with his primary care physician in 5 to 7 days. Patient understood and was agreeable with the plan. All questions were answered. Discharge Plan Triage Chief Complaint: Back ED Provider: Blair Cortes Dx/Rx/DC Orders Clinical Impression: Acute lumbar myofascial strain Instructions: ED Back Sprain/Strain, ED Back and Neck Pain, General Prescriptions: New meloxicam 15 mg tablet 15 mg PO DAILY Qty: 10 0RF Primary Care Provider: Niko Buckner Referrals: Niko Buckner MD [Primary Care Provider] - 3-5 Days Disposition Disposition: Home, Self Care
[2023-03-28 18:22] VITALS: PULSE 73; RESP 18; O2SAT 98
== END 2023-03-28 18:22 | disposition home or self-care (01) ==
PROVIDERS: Emergency Provider Emergency Medicine; PCP Family Medicine; Visit Provider Emergency Medicine
DX: S39.012A Strain of muscle, fascia and tendon of lower back, initial encounter (principal); F17.210 Nicotine dependence, cigarettes, uncomplicated; X58.XXXA Exposure to other specified factors, initial encounter
CPT/HCPCS: 99282

== ENCOUNTER 2023-03-30 16:45 | Emergency (ER) | payer MEDICARE, MEDICAID, SELFPAY ==
[2023-03-30 16:55] VITALS: BP 160/96; PULSE 66; RESP 16; TEMP 36.6; O2SAT 99
[2023-03-30 16:59] VITALS: BMI 32.7
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
--- NOTE | 2023-03-30 17:25 | CT_ITS ---
INDICATION: trauma EXAMINATION: CT CERVICAL SPINE - CT Spine Cervical W/O Contrast Injection TECHNIQUE: Helically acquired images were obtained of the cervical spine. 2D reformatted images were reviewed. A radiation dose optimization technique was used for this scan. IV Contrast dosage and agent: None. RADIATION DOSAGE (If Supplied By Facility): CTDIvol = ( 22.16 ) mGy, DLP = ( 486.28 ) mGycm COMPARISON: FINDINGS: VERTEBRAE: No fracture or traumatic subluxation. No discrete lytic or blastic abnormality. Normal alignment. Normal craniocervical junction and cervicothoracic junction. DISCS and SPINAL CANAL: Disc heights are preserved. No critical stenosis. NECK SOFT TISSUES: No prevertebral soft tissue swelling. There is no cervical adenopathy. LUNG APICES: Clear. CT/Spine Cervical without Contras IMPRESSION: No evidence of acute cervical spinal fracture or spondylolisthesis. Electronically Signed: Natalie Willis MD at 18:41 EDT Reading Location ID and State: [id number] / Tel , Service support ,
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
--- NOTE | 2023-03-30 17:55 | RAD_ITS ---
INDICATION: trauma EXAMINATION/TECHNIQUE: X-RAY - XR Pelvis 1 or 2 Views COMPARISON: 03/03/2021. FINDINGS: PELVIC BONES: No displaced fracture, destructive or sclerotic lesions. Note that overlapping bowel shadows may however obscure fine detail. Sacroiliac joints are unremarkable. No widening of the pubic symphysis. HIPS: The articular structures are unremarkable. No displaced fracture seen in this frontal view. SOFT TISSUES: No soft tissue swelling or gas. RAD/Pelvis 1 or 2 Views IMPRESSION: No evidence of displaced pelvic or hip fracture. Electronically Signed: Natalie Willis MD at 18:46 EDT Reading Location ID and State: [id number] / Tel , Service support ,
--- NOTE | 2023-03-30 17:55 | RAD_ITS ---
INDICATION: trauma EXAMINATION/TECHNIQUE: X-RAY - XR Chest 1 View COMPARISON: 03/06/2022. FINDINGS: LINES/DEVICES: None. LUNGS: No consolidation, edema or effusion. No pneumothorax. MEDIASTINUM AND CARDIOVASCULAR STRUCTURES: Cardiac silhouette not enlarged. Central airways and mediastinal contour are unremarkable. BONES AND SOFT TISSUES: Unremarkable. RAD/Chest 1 View (Portable) IMPRESSION: No radiographic evidence of acute cardiopulmonary disease. Electronically Signed: Natalie Willis MD at 18:42 EDT Reading Location ID and State: [id number] / Tel , Service support ,
[2023-03-30] MEDS: Diphth,Pertuss(Acell),Tet Vac 0.5 ML Vial IM (18:08)
[2023-03-30 18:45] VITALS: BP 126/78; PULSE 72; RESP 14; O2SAT 99
[2023-03-30] MEDS: Lidocaine 1% (20 ml mdv) 20 ML Vial INFILT (18:49)
[2023-03-30 20:30] VITALS: BP 141/78; PULSE 81; RESP 16; O2SAT 98
== END 2023-03-30 20:33 | disposition home or self-care (01) ==
PROVIDERS: Emergency Provider Emergency Medicine; PCP Family Medicine; Visit Provider Emergency Medicine
DX: S06.0X9A Concussion with loss of consciousness of unspecified duration, initial encounter (principal); S01.81XA Laceration without foreign body of other part of head, initial encounter; S10.93XA Contusion of unspecified part of neck, initial encounter; V49.50XA Passenger injured in collision with unspecified motor vehicles in traffic accident, initial encounter; F17.210 Nicotine dependence, cigarettes, uncomplicated; F17.290 Nicotine dependence, other tobacco product, uncomplicated; Z23 Encounter for immunization
CPT/HCPCS: 12053; 70450; 71045; 72125; 72170; 90471; 90715; 99283